=== PATIENT | female | born 1970 | race Caucasian/White ===

== ENCOUNTER → 2016-05-31 | Outpatient (CLI) | payer BC ==
[~2016-05-31] MED LIST: CALC1TAB27 PO; DIPH25CA37 PO; IBUP-1450 PO; MISCCAP80 PO; OMEG10002 PO; RANI300T PO
--- NOTE | 2016-05-31 15:55 | MAMMOGRAPHY REPORT ---
UNILATERAL LEFT DIGITAL DIAGNOSTIC MAMMOGRAM TOMOSYNTHESIS WITH CAD: 05/31/2016 CLINICAL HISTORY: Six-month follow-up of left breast asymmetry. TECHNIQUE: Breast tomosynthesis in addition to standard 2D mammography was performed. Current study was also evaluated with a Computer Aided Detection (CAD) system. Left CC and MLO 2-D and tomosynth esis images were obtained. COMPARISON: Comparison is made to exams dated: 11/30/2015 mammogram, 11/30/2015 ultrasound, 11/16/2015 mammogram, 11/12/2014 mammogram, 11/11/2013 mammogram, and 11/01/2012 mammogram - [facility]. BREAST COMPOSITION: There are scattered areas of fibroglandular density in the left breast. FINDINGS: The previously seen asymmetry with possible distortion on the left cc view is not evident on the current exam, and is therefore benign and most compatible with normal fibroglandular tissue. There are no suspicious masses, calcifications, or areas of architectural distortion noted in the le ft breast. IMPRESSION: ACR BI-RADS CATEGORY 2: BENIGN There is no mammographic evidence of malignancy in the left breast. Return to annual mammogram scree mc schedule is recommended, due November 2016. The patient has been verbally notified of the res ults. Approximately 10% of breast cancers are not detected with mammography. A negative mammographic repor t should not delay biopsy if a clinically suggestive mass is present. Radha Dial M.D. /:05/31/2016 14:42:45 Tax Form Preparer: Zahida JAMES(Esthela)(Obdulia), [facility] letter sent: Normal 1/2 BI-RADS Code: ACR BI-RADS Category 2: Benign
== END | disposition home or self-care (01) ==
LOC: C.MAMM 14:09
PROVIDERS: ATTEND Family Medicine
DX: N64.9 Disorder of breast, unspecified (principal)

== ENCOUNTER → 2016-11-16 | Outpatient (CLI) | payer BC ==
--- NOTE | 2016-11-16 16:21 | MAMMOGRAPHY REPORT ---
BILATERAL DIGITAL SCREENING MAMMOGRAM TOMOSYNTHESIS WITH CAD: 11/16/2016 CLINICAL HISTORY: Routine screening. Patient has no complaints. TECHNIQUE: Breast tomosynthesis in addition to standard 2D mammography was performed. Current study was also evaluated with a Computer Aided Detection (CAD) system. COMPARISON: Comparison is made to exams dated: 05/31/2016 mammogram, 11/30/2015 mammogram, 11/30/2015 u ltrasound, 11/16/2015 mammogram, 11/12/2014 mammogram, and 11/11/2013 mammogram - [facility]. BREAST COMPOSITION: There are scattered areas of fibroglandular density in both breasts. FINDINGS: No suspicious masses, calcifications, or areas of architectural distortion are noted in ei ther breast. There has been no significant interval change compared to prior exams. IMPRESSION: ACR BI-RADS CATEGORY 1: NEGATIVE There is no mammographic evidence of malignancy. A 1 year screening mammogram is recommended. The pa tient will receive written notification of the results. Approximately 10% of breast cancers are not detected with mammography. A negative mammographic report should not delay biopsy if a clinically suggestive mass is present. Radha Dial M.D. /:11/16/2016 15:07:56 Gas Inspector: Alejandra JAMESR, M, [facility] letter sent: Normal 1/2 BI-RADS Code: ACR BI-RADS Category 1: Negative
== END | disposition home or self-care (01) ==
LOC: C.MAMM 14:41
PROVIDERS: ATTEND Family Medicine
DX: Z12.31 Encounter for screening mammogram for malignant neoplasm of breast (principal)

== ENCOUNTER 2025-02-19 09:17 | Observation (INO) ==
--- NOTE | 2025-01-21 11:09 | PAT Medication Instructions ---
Medication Instructions Date of Service January 21, 2025 Home Medications levocetirizine 5 mg tablet (Xyzal) 5 mg PO HS omega-3 fatty acids 1,000 mg PO BID acetaminophen 500 mg tablet (Tylenol Extra Strength) 1,500 mg PO Q6H PRN Elderberry, Vit C, Zinc, Vit D3, Liana 2 cap PO QAM Magnesium Malate 300 mg PO QAM Neuro-Mag L Threonate 144 mg PO HS Vitamin K1/K2 1 tab PO HS calcium 315 mg (as citrate)-vitamin D3 6.25 mcg (250 unit) tablet (Citracal + Vitamin D Maximum) 1 tab PO BID gabapentin 300 mg capsule 300 mg PO HS glucosamin 375 mg-chond 300 mg-collagen 50 mg-hyaluronic acid 2 mg cap 1 cap PO QPM meloxicam 15 mg tablet 15 mg PO QAM turmeric root extract 500 mg tablet 1,000 mg PO QAM ASK your surgeon for instructions meloxicam 15 mg tablet 15 mg PO QAM STOP taking 2 weeks before surgery (or as soon as possible if surgery is within 2 weeks) omega-3 fatty acids 1,000 mg PO BID Elderberry, Vit C, Zinc, Vit D3, Liana 2 cap PO QAM Neuro-Mag L Threonate 144 mg PO HS Vitamin K1/K2 1 tab PO HS glucosamin 375 mg-chond 300 mg-collagen 50 mg-hyaluronic acid 2 mg cap 1 cap PO QPM turmeric root extract 500 mg tablet 1,000 mg PO QAM DO NOT take the morning of surgery Magnesium Malate 300 mg PO QAM calcium 315 mg (as citrate)-vitamin D3 6.25 mcg (250 unit) tablet (Citracal + Vitamin D Maximum) 1 tab PO BID Take morning of surgery With a small sip of water, OTHERWISE NOTHING TO EAT OR DRINK AFTER MIDNIGHT: acetaminophen 500 mg tablet (Tylenol Extra Strength) 1,500 mg PO Q6H PRN(if needed) Take evening before surgery levocetirizine 5 mg tablet (Xyzal) 5 mg PO HS acetaminophen 500 mg tablet (Tylenol Extra Strength) 1,500 mg PO Q6H PRN(if needed) calcium 315 mg (as citrate)-vitamin D3 6.25 mcg (250 unit) tablet (Citracal + Vitamin D Maximum) 1 tab PO BID gabapentin 300 mg capsule 300 mg PO HS Other Notes If you have any questions please call us at [phone] or [phone] or [phone] or [phone]
--- NOTE | 2025-01-22 15:05 | Anesthesiology Consultation ---
Date of Service January 22, 2025 Assessment & Plan (1) Encounter for pre-operative examination: - awaiting surgeon ordered medical clearance 02/05/25 [facility] PCP Dr. Joey Wells. Chart Review Chart Review: Patient seen in Pre Admission Testing Teaching & Discussion Pre-Anesthesia Teaching/Discussion Notes: Instructed NPO after midnight before surgery, except medications with 15 cc of water. Medication instructions provided according to the PAT guidelines. History Surgery Operation Date: 02/19/25 07:00 Proposed Procedures p Right Total Hip Arthroplasty - Pilo Garcia MD Height/Weight Height: 5 ft 7.5 in Weight: 94.3 kg Allergies Allergy/AdvReac Type Severity Reaction Status Date / Time No Known Allergies Allergy Unknown Verified 01/20/25 16:31 Medications Home Medications Medication Instructions Recorded Confirmed Last Taken levocetirizine 5 mg tablet (Xyzal) 5 mg PO HS 09/22/20 01/20/25 09/27/20 21:00 omega-3 fatty acids 1,000 mg PO BID 09/22/20 01/20/25 09/27/20 21:00 acetaminophen 500 mg tablet 1,500 mg PO Q6H PRN Pain 08/17/23 01/20/25 Unknown (Tylenol Extra Strength) Elderberry, Vit C, Zinc, Vit D3, 2 cap PO QAM 01/20/25 01/20/25 Unknown Liana Magnesium Malate 300 mg PO QAM 01/20/25 01/20/25 Unknown Neuro-Mag L Threonate 144 mg PO HS 01/20/25 01/20/25 Unknown Vitamin K1/K2 1 tab PO HS 01/20/25 01/20/25 Unknown calcium 315 mg (as 1 tab PO BID 01/20/25 01/20/25 Unknown citrate)-vitamin D3 6.25 mcg (250 unit) tablet (Citracal + Vitamin D Maximum) gabapentin 300 mg capsule 300 mg PO HS 01/20/25 01/20/25 Unknown glucosamin 375 mg-chond 300 1 cap PO QPM 01/20/25 01/20/25 Unknown mg-collagen 50 mg-hyaluronic acid 2 mg cap meloxicam 15 mg tablet 15 mg PO QAM 01/20/25 01/20/25 Unknown turmeric root extract 500 mg tablet 1,000 mg PO QAM 01/20/25 01/20/25 Unknown Past Medical History Medical History (Updated 01/22/25 @ 15:18 by Gricelda Zepeda PA-C) Gastroparesis GERD (gastroesophageal reflux disease) controlled, stable per pt History of COVID-19 diagnosed 03/31/20--resolved Restless leg syndrome Sleep apnea CPAP-compliant Patient denies h/o stroke, seizures, heart attack, heart failure, DM, HTN, blood clots/DVTs or blood transfusions. Exercise / Class Metabolic Activity II 4-5 Yardwork/Stairs/Walk up hill (denies chest discomfort or shortness of breath walking up one flight of stairs) Past Family History Family History Other No family history of adverse response to anesthesia Past Surgical History Surgical History History of arthroscopy of left knee History of section x2 History of cholecystectomy History of colonoscopy History of esophagogastroduodenoscopy (EGD) History of tooth extraction Past Anesthesia History No Hx of Anesthesia Complications and No Family Hx of Anesthesia Complications History of PONV No Hx of PONV and Hx of Motion Sickness Social History Smoking Status: Never smoker Do You Dip or Chew Tobacco: No Hx Alcohol Use: No Hx Substance Use: No substance use type: does not use Review of Systems Patient denies chest pain, shortness of breath, dyspnea on exertion, fever, chills, cough, wheezing, or palpitations. Physical Exam Vital Signs Vitals BP 113/77 P 59 TEMP 98.2 SP02 97% on RA RESP 17 Physical Patient resting comfortably in chair in no acute distress, alert and oriented, responding appropriately throughout visit Full cervical extension range of motion without pain TMD 3 finger breadths Mallampati Score 3.5 Dentition: crown, denies chipped or loose teeth, caps, implants or bridges Lungs: normal respiratory effort. Good air movement, clear throughout to auscultation, no adventitious breath sounds Cardiac: regular rate and rhythm, no murmurs noted Carotid arteries: negative bruit bilat Lab Results Anesthesia Preop Results Results Anesthesia Widget: WBC 9.49 K/ul (4.8-10.8) 01/22/25 Hgb 12.9 g/dL (12.0-16.0) 01/22/25 Hct 38.2 % (37.0-47.0) 01/22/25 Plt 265 K/uL (130-400) 01/22/25 Na 138 mmol/L (136-145) 01/22/25 K 4.4 mmol/L (3.5-5.1) 01/22/25 Cl 104 mmol/L (98-107) 01/22/25 CO2 29 mmol/L (21-32) 01/22/25 BUN 21 mg/dl (6-23) 01/22/25 Creat 0.93 mg/dl (0.6-1.2) 01/22/25 Glucose Level 100 mg/dl (70-99(Fasting)) H 01/22/25 PT 10.8 Seconds (9.0-12.0) 01/22/25 PTT 26 Seconds (21-31) 01/22/25 INR 1.0 (0.9-1.1) 01/22/25 Urine Color Yellow 01/22/25 Urine Appearance Clear (Clear) 01/22/25 Urine pH 7.0 (4.5-7.5) 01/22/25 Urine Specific [place] 1.005 (1.000-1.030) 01/22/25 Urine Protein Negative (Negative) 01/22/25 Urine Glucose (UA) Negative (Negative) 01/22/25 Urine Ketones Negative (Negative) 01/22/25 Urine Blood Negative (Negative) 01/22/25 Urine Nitrite Negative (Negative) 01/22/25 Urine Bilirubin Negative (Negative) 01/22/25 Urine Urobilinogen Negative (Negative) 01/22/25 Urine Leukocyte Esterase Trace (Negative) H 01/22/25 Urine WBC (Auto) 0-5 /hpf (0-5) 01/22/25 Urine RBC (Auto) 6-10 /hpf (0-2) H 01/22/25 Urine Hyaline Casts (Auto) 0-2 /lpf (0-2) 01/22/25 Urine Epithelial Cells (Auto) 0-2 /hpf (0-2) 01/22/25 Urine Bacteria (Auto) None Seen (None Seen) 01/22/25 Blood Type A Positive 01/22/25 Antibody Screen NEGATIVE 01/22/25 Testing Electrocardiogram Date: 01/22/25 Sinus bradycardia, rate 58 bpm Incomplete RBBB
[~2025-02-19 09:17] MED LIST changes: +BUPIVACAINE 0.5 % 5 MG/1 ML PF 10ML VIAL ONE; -CALC1TAB27 PO; -DIPH25CA37 PO; -IBUP-1450 PO; -MISCCAP80 PO; -OMEG10002 PO; -RANI300T PO
[2025-02-19] MEDS: LR 500ML BOLUS, THEN 15ML/HR IV SCH (09:39)
[2025-02-19] MEDS ORDERED: LIDOCAINE 2% 2 ML VIAL/AMP(20MG/ML) INFIL ONE (09:56)
[2025-02-19] MEDS ORDERED: MIDAZOLAM HCL 1 MG/ML 2ML VIAL ONE (09:56)
[2025-02-19] MEDS: ACETAMINOPHEN 500 MG TAB PO SCH (09:59)
[2025-02-19] MEDS: FAMOTIDINE 20 MG TAB PO SCH (10:00)
[2025-02-19] MEDS: dexAMETHasone**PF** 10 MG/ML VIAL IV SCH (10:00)
[2025-02-19] MEDS: LR 60ML/HR IV SCH (10:00)
[2025-02-19] MEDS: CeleBREX 200 MG CAP PO SCH (10:00)
[2025-02-19] MEDS ORDERED: ATROPINE SULFATE 0.1 MG/ML 10ML SYR IV PRN (10:20)
[2025-02-19] MEDS ORDERED: ONDANSETRON INJ 2 MG/ML 2 ML VIAL IV PRN (10:20)
[2025-02-19] MEDS ORDERED: PROMETHAZINE HCL 6.25 MG in SODIUM CHLORIDE 0.9% 50 ML IV PRN (10:20)
--- NOTE | 2025-02-19 10:23 | History & Physical Bridge Note ---
Date of Service February 19, 2025 History & Physical Bridge Note I have examined the patient, reviewed the History & Physical and in the interval since the performance of the History & Physical I have noted the following changes of clinical significance: no changes noted
[2025-02-19] MEDS: TRANEXAMIC ACID 1,000 MG **IV Pre-op IV SCH (10:34)
[2025-02-19] MEDS ORDERED: METOPROLOL TARTRATE 1 MG/ML VIAL IV ONE (11:10)
[2025-02-19] MEDS ORDERED: PROPOFOL IV EMULSION 10 MG/ML 20 ML VIAL IV ONE (11:10)
[2025-02-19] MEDS: ORTHO JOINT ANESTHETIC ONE (11:57)
[2025-02-19] MEDS: ROPIV 0.5% 246mg, Ketorolac 30mg, EPINEPHrine 0.5mg in NSS INFIL SCH (11:57)
--- NOTE | 2025-02-19 12:23 | Operative Report ---
Post Operative Report Pre & Post Diagnosis Operation Date: 02/19/25 10:40 Pre-Op Diagnosis: Right Hip Osteoarthritis, labrum tear Post-Op Diagnosis: Right Hip Osteoarthritis, labrum tear I identified the patient and participated in the time-out.: Yes Procedure Operation Date: 02/19/25 10:40 Actual Procedures p Right Total Hip Arthroplasty(Right) - Pilo Garcia MD Surgeon Pilo Garcia MD Vacuum Conditioner Operator [employer] PA-C. No resident or fellow was available to assist. Estimated Blood Loss 100 Findings Consistent with Post-Op Diagnosis Specimens Right femoral head Anesthesia Type Spinal MAC Complications none Disposition Disposition: Recovery Room Indications 54-year-old female with right hip pain intractable to nonsurgical management. This includes physical therapy, nonsteroidal anti-inflammatory medications, activity modification, and corticosteroid injections. Physical exam was notable for limited hip range of motion, positive impingement scour test. X-rays were obtained demonstrating mild osteoarthritis. An MRI was obtained which showed evidence of a labrum tear as well as arthritis. Having failed extensive nonsurgical management she was now a candidate for surgery. Given her age, arthritis and body mass index I did not think she was a good candidate for hip arthroscopy. Total hip replacement was her best surgical option. I reviewed the risks and benefits of the surgery with her at length, alternatives to surgery, and expected outcomes. After reviewing all these she elected to proceed with surgery. All questions were answered. Informed consent was signed. Description of Procedure Patient was identified in the preoperative holding area where the surgical site, right hip, was marked. A spinal anesthetic was placed, then the patient was brought back to the main operating room, placed in the operating table and moved into the lateral decubitus position. Axillary roll was placed. All bony prominences were padded. Perioperative antibiotics and tranexamic acid 1 gram IV were administered. The operative extremity was prepped and draped in the normal sterile fashion. Prior to incision a multidisciplinary timeout was called. All in the room were in agreement. We began by making an incision for a posterior approach to the hip. We dissected down through subcutaneous tissues to the level of the fascia. The fascia was incised in line with the incision. Charnley bow was placed. Fatty tissue was reflected posteriorly off the back of the greater trochanter to expose the piriformis and short external rotators of the hip. Quadratus femoris was taken off the femur subperiosteally. The piriformis and short external rotators were dissected off the posterior aspect of the hip. A box cut was made in the capsule. Inferior hip capsule was released off the femur. The femoral head was dislocated. The femoral neck cut was made at our preoperative template. The acetabulum was then exposed. The labrum was sharply excised. Contents of the cotyloid fossa were removed with electrocautery. We then began reaming at a size 8 mm less than our preoperative template. We reamed up by 1 [address] the way up to a size 54 mm cup. This gave us good bleeding cancellus bone circumferentially. The acetabulum was then irrigated out and dried. The real [place] Gription cup was then impacted down into position with 40 degrees of lateral opening and 20 degrees of anteversion. A single cancellous bone screw was placed up into the ilium. Excellent fixation was obtained. A trial liner for a 36 mm femoral head was then placed. Next we turned our attention to the femur. The lateral neck was removed with a box osteotome. Intramedullary guide was used to establish the intramedullary canal. We then broached all the way up to a size 3. We began trialing with a high offset neck and a +5 head. Hip was reduced. Leg lengths were symmetric. The hip was stable in extension and external rotation, and stable in the sleeper position. At 90 degrees of hip flexion the hip could be internally rotated 70 degrees before levering out of the cup. I was very happy with the stability exam. Therefore the hip was dislocated and the femoral trial was removed. The acetabulum was re-exposed, and the trial liner was removed. The real polyethylene liner for a 36 mm femoral head was then impacted into the shell. The locking mechanism was checked to ensure that it had engaged which it had. The femur was re-exposed. The femoral canal was irrigated and dried. The real Actis femoral stem was opened up. This was impacted down into position. The femoral head was opened up and gently impacted down onto the trunnion. The hip was atraumatically reduced. Another 1 gram of IV tranexamic acid was started prior to closure. The wound was irrigated out with sterile Betadine solution. The periarticular injection cocktail was then placed. The short external rotators, piriformis, and posterior capsule were repaired through drill holes in the greater trochanter using #2 Vicryl. The fascia was run with a looped #1 PDS. The subcutaneous layer was closed with #1 PDS. The dermal layer was closed with 2-0 Vicryl. Zip line was used for the skin followed by a Silverlon dressing. A compressive dressing was then placed. The patient was then rolled supine. Leg lengths were rechecked and were symmetric. An abduction pillow was placed. Sedation was lifted and the patient was transferred to the recovery room in stable condition. Summary of implants: Depuy Emphasys Acetabular Shell, 3-hole, 54 mm outer diameter [place] Cancellous bone screw, 6.5 x 40 mm Emphasys AOX Polyethylene Acetabular Liner, Neutral, with a 36 mm inner diameter DePuy Actis collared cementless Femoral stem, 12/14 taper, size 3 high offset 36 mm ceramic femoral head with +5 offset Postoperative course: Patient will be admitted overnight from the recovery room. Patient will be weightbearing as tolerated with posterior hip precautions. Aspirin for DVT prophylaxis I attest to the content of the Intraoperative Record and any orders documented therein. Any exceptions are noted below.
--- NOTE | 2025-02-19 12:25 | Operative Report ---
Post Operative Report Pre & Post Diagnosis Operation Date: 02/19/25 10:40 Pre-Op Diagnosis: Right Hip Osteoarthritis Post-Op Diagnosis: Right Hip Osteoarthritis I identified the patient and participated in the time-out.: Yes Procedure Operation Date: 02/19/25 10:40 Actual Procedures p Right Total Hip Arthroplasty(Right) - Pilo Garcia MD Surgeon Pilo Garcia MD Extension Clerk [employer] PA-C. No resident or fellow was available to assist. Estimated Blood Loss 100 Findings Consistent with Post-Op Diagnosis Specimens femoral head Description of Procedure I was present during the entire case assisting with positioning, prepping, draping, wound retraction, wound closure, dressing and abduction pillow placement. No fellow present. Please see Dr. Garcia operative note for specifics of the case. I attest to the content of the Intraoperative Record and any orders documented therein. Any exceptions are noted below.
[2025-02-19] MEDS ORDERED: ALUMINUM/MAGNESIUM SUSP 30 ML UDC PO PRN (12:28)
[2025-02-19] MEDS ORDERED: NALOXONE HCL 0.4 MG/1 ML VIAL/CARP IV PRN (12:28)
[2025-02-19] MEDS ORDERED: METOCLOPRAMIDE HCL INJ 5 MG/ML 2 ML VIAL IV PRN (12:28)
[2025-02-19] MEDS ORDERED: MAGNESIUM HYDROXIDE SUSP 30 ML UDC PO PRN (12:28)
[2025-02-19] MEDS ORDERED: diphenhydrAMINE 50 MG/ML VIAL IV PRN (12:28)
--- NOTE | 2025-02-19 13:10 | XRay Report ---
XR pelvis 1-2V routine HISTORY: 54 years-old Female In PACU - Post Surgical COMPARISON: Pelvis radiograph 01/26/2025 TECHNIQUE: AP view of the pelvis FINDINGS: Satisfactory alignment of the right hip arthroplasty. Expected postoperative soft tissue swelling wit h deep tissue air. No acute fracture, dislocation or unexpected opaque foreign body. Mild osteoarthri tis of the left hip. IMPRESSION: Satisfactory alignment of the right hip arthroplasty. ACT 112: Negative or not required by law. The above report was generated using voice recognition software. It may contain grammatical, syntax o r spelling errors. Electronically signed by: To Cronin M.D. 02/19/2025 1:09 PM
[2025-02-19] MEDS: HYDROmorphone INJ 1 MG/ML SYRINGE ONE (13:24)
--- NOTE | 2025-02-19 14:17 | Anesthesiology Progress Note ---
Date of Service February 19, 2025 Anesthesia Post Procedure Vital Signs Vital Signs: Temp Pulse Resp BP BP Pulse Ox O2 Del Method 02/19/25 13:45 36.4 C L 56 L 15 115/55 L 96 Room Air 02/19/25 13:35 54 L 15 107/52 L 96 Room Air 02/19/25 13:25 55 L 15 106/51 L 97 Room Air 02/19/25 13:15 36.4 C L 56 L 17 106/54 L 97 Room Air 02/19/25 13:05 52 L 17 102/56 L 97 Room Air 02/19/25 12:55 52 L 17 104/59 L 96 Room Air 02/19/25 12:45 54 L 17 103/57 L 99 Oxymask 02/19/25 12:35 53 L 16 98/48 L 100 Oxymask 02/19/25 12:27 36.2 C L 55 L 18 100/48 L 100 Oxymask 02/19/25 09:40 36.9 C 65 20 133/83 96 Room Air O2 Flow Rate 02/19/25 13:45 02/19/25 13:35 02/19/25 13:25 02/19/25 13:15 02/19/25 13:05 02/19/25 12:55 02/19/25 12:45 5 02/19/25 12:35 5 02/19/25 12:27 5 02/19/25 09:40 Transfer of Care Handoff Completed per policy Notes Mental Status: alert / awake / arousable and participated in evaluation Patient Amnestic to Procedure: Yes Nausea / Vomiting: adequately controlled Pain: adequately controlled Airway Patency, RR, SpO2: stable & adequate BP & HR: stable & adequate Hydration State: stable & adequate Neuraxial Anesthesia: was administered and sensory block is resolving Anesthetic Complications: no major complications apparent and Pt Satisfied with anesthetic care
[2025-02-19] MEDS: HYDROmorphone INJ 0.5 MG/0.5 ML SYR IV STA (14:42)
[2025-02-19] MEDS: KETOROLAC TROMETHAMINE 15 MG/ML VIAL IV SCH (14:45)
[2025-02-19] MEDS: SODIUM CHLORIDE 0.9% 1,000 ML IV SCH (14:45)
[2025-02-19] MEDS: Scopolamine CHECK PATCH PLACEMENT SCH (14:46)
[2025-02-19] MEDS ORDERED: Nursing to Pharmacy Communication SCH (15:15)
[2025-02-19] MEDS: OMEGA-3 (PURIFIED FISH OIL) 1 GM CAP PO SCH (20:27)
[2025-02-19] MEDS: CETIRIZINE HCL 10 MG TABLET PO SCH (20:28)
[2025-02-19] MEDS: SENNA 8.6 MG TAB PO SCH (20:28)
[2025-02-19] MEDS: GABAPENTIN 300 MG CAP PO SCH (20:28)
[2025-02-19] MEDS: DOCUSATE SODIUM 100 MG CAP PO SCH (20:28)
[2025-02-19] MEDS: CALCIUM 600MG + VIT D 400 IU TAB PO SCH (20:28)
[2025-02-19] MEDS: ONDANSETRON INJ 2 MG/ML 2 ML VIAL IV PRN (20:45)
[2025-02-19] MEDS ORDERED: GLUCOSAM CHON COLLAG HYALUR AC PO SCH (21:00)
[2025-02-20] MEDS: ACETAMINOPHEN 500 MG TAB PO PRN (01:31)
[2025-02-20 04:03] VITALS: O2SAT 96
[2025-02-20 05:11] LABS: Hematocrit (blood only) 33.6 % (37.0-47.0); Hemoglobin 11.0 g/dL (12.0-16.0); Immature Granulocytes # (auto) 0.09 K/uL (0.01-0.20); Immature Granulocytes % (auto) 0.5 %; Mean Corpuscular Hemoglobin 28.4 pg (25.0-34.0); Mean Corpuscular Volume 86.8 fL (80.0-100.0); Platelet Count 247 K/uL (130-400); RDW Standard Deviation 39.9 fL (36.4-46.3); Red Blood Count 3.87 M/uL (4.20-5.40); White Blood Count 16.81 K/ul (4.8-10.8)
[2025-02-20 05:26] LABS: Anion Gap 8.0 (3-11); Blood Urea Nitrogen 20.0 mg/dl (6-23); Calcium 8.4 mg/dl (8.6-10.3); Carbon Dioxide 25.0 mmol/L (21-32); Chloride 105.0 mmol/L (98-107); Creatinine Clr Calc Pharmacy 90.4 ml/min; Glucose 113.0 mg/dl (70-99(Fasting)); Potassium 3.8 mmol/L (3.5-5.1); Sodium 138.0 mmol/L (136-145)
[2025-02-20 07:28] VITALS: BP 100/54; PULSE 54; RESP 20; TEMP 98.2
[2025-02-20] MEDS: dexAMETHasone 10 MG in SYRINGE 0 ML IV SCH (08:46)
[2025-02-20] MEDS: GABAPENTIN 100 MG CAP PO SCH (08:47)
[2025-02-20] MEDS: MULTIVITAMIN TAB PO SCH (08:47)
[2025-02-20] MEDS: ASPIRIN 81 MG ECTAB PO SCH (08:47)
[2025-02-20] MEDS ORDERED: MELOXICAM 7.5 MG TAB PO SCH (09:00)
--- NOTE | 2025-02-20 09:16 | Orthopedic Progress Note ---
Date of Service February 20, 2025 Assessment & Plan (1) S/P total hip arthroplasty: Plan: Total hip precautions reviewed Weightbearing as tolerated with walker assistance PT/OT Pain controlled p.o. medication DVT prophylaxis with aspirin and FLORIAN stockings Ice with easy wrap Abduction pillow use x 6 weeks Keep Silverlon dressing in place until follow-up Plan is to discharge home later today with in-home physical therapy Follow-up at [facility] orthopedics as previously scheduled With questions contact our clinic at [phone] Admission and Anticipated Discharge Date Admission Date: February 19, 2025 Subjective This 54-year-old female is day 1 status post right total hip arthroplasty. She states she is doing very well. She states she did get a little lightheaded and her blood pressure dropped while doing stairs this morning with PT. Sitting down she is asymptomatic however I decided to give her a liter bolus of saline s olution. She states she also had some nausea last night and was treated with Zofran. Currently she denies chest pain, shortness of breath, fever, chills, sweats, nausea, vomiting, diarrhea, difficulty voiding or numbness or tingling in her right lower extremity. Review of Systems Review of Systems: All systems reviewed & are unremarkable except as noted in Subjective Physical Exam Physical Exam: Right hip: Outer dressing was removed. Silverlon is clean dry intact left in place. Patient is able to perform active straight leg raise test. She is able to actively dorsi and plantarflex her foot. She has no discomfort with logroll testing. She tolerates passive hip flexion to 85 degrees and experiences only a slight pulling sensation with light passive internal and external rotation. Her peripheral pulses are 2+. Her quad strength is 4 out of 5. She is neurovascularly intact in the right lower extremity. Also of note is a small superficial abrasion over the anterior aspect of her lower leg. Due to this we will give her a prescription for an antibiotic for infection prevention. Results & Data Vital Signs (Past 12 Hours) Vital Signs Temp Pulse Resp BP BP Pulse Ox O2 Del Method 02/20/25 07:26 36.8 C 54 L 20 100/54 L 96 Room Air 02/20/25 04:02 36.6 C 50 L 16 102/60 96 CPAP 02/19/25 22:57 36.5 C 61 16 104/64 94 Room Air Diagnostic Findings Laboratory Results WBC 16.81 K/ul (4.8-10.8) H 02/20/25 04:38 RBC 3.87 M/uL (4.20-5.40) L 02/20/25 04:38 Hgb 11.0 g/dL (12.0-16.0) L 02/20/25 04:38 Hct 33.6 % (37.0-47.0) L 02/20/25 04:38 MCV 86.8 fL (80.0-100.0) 02/20/25 04:38 MCH 28.4 pg (25.0-34.0) 02/20/25 04:38 MCHC 32.7 g/dL (32.0-36.0) 02/20/25 04:38 RDW Std Deviation 39.9 fL (36.4-46.3) 02/20/25 04:38 RDW Coeff of Edgardo 12.6 % (11.5-14.5) 02/20/25 04:38 Plt Count 247 K/uL (130-400) 02/20/25 04:38 MPV 9.4 fL (9.4-12.4) 02/20/25 04:38 Immature Gran % (Auto) 0.5 % 02/20/25 04:38 Neut % (Auto) 83.2 % 02/20/25 04:38 Lymph % (Auto) 7.4 % 02/20/25 04:38 [place] % (Auto) 8.7 % 02/20/25 04:38 Eos % (Auto) 0.0 % 02/20/25 04:38 Baso % (Auto) 0.2 % 02/20/25 04:38 Neut # (Auto) 13.99 K/uL (1.40-6.50) H 02/20/25 04:38 Lymph # (Auto) 1.24 K/uL (1.20-3.40) 02/20/25 04:38 [place] # (Auto) 1.46 K/uL (0.11-0.59) H 02/20/25 04:38 Eos # (Auto) 0.00 K/uL (0.00-0.50) 02/20/25 04:38 Baso # (Auto) 0.03 K/uL (0.00-0.20) 02/20/25 04:38 Immature Gran # (Auto) 0.09 K/uL (0.01-0.20) 02/20/25 04:38 Sodium 138 mmol/L (136-145) 02/20/25 04:38 Potassium 3.8 mmol/L (3.5-5.1) 02/20/25 04:38 Chloride 105 mmol/L (98-107) 02/20/25 04:38 Carbon Dioxide 25 mmol/L (21-32) 02/20/25 04:38 Anion Gap 8 (3-11) 02/20/25 04:38 BUN 20 mg/dl (6-23) 02/20/25 04:38 Creatinine 0.84 mg/dl (0.6-1.2) 02/20/25 04:38 Est Cr Clr Drug Dosing 90.4 ml/min 02/20/25 04:38 eGFR 82.53 02/20/25 04:38 BUN/Creatinine Ratio 23.8 (10-20) H 02/20/25 04:38 Glucose 113 mg/dl (70-99(Fasting)) H 02/20/25 04:38 Calcium 8.4 mg/dl (8.6-10.3) L 02/20/25 04:38 POC Ur Test NEG (NEG) 02/19/25 10:32 Impressions Pelvis X-Ray 02/19/25 12:28 XR pelvis 1-2V routine HISTORY: 54 years-old Female In PACU - Post Surgical COMPARISON: Pelvis radiograph 01/26/2025 TECHNIQUE: AP view of the pelvis FINDINGS: Satisfactory alignment of the right hip arthroplasty. Expected postoperative soft tissue swelling with deep tissue air. No acute fracture, dislocation or unexpected opaque foreign body. Mild osteoarthritis of the left hip. IMPRESSION: Satisfactory alignment of the right hip arthroplasty. ACT 112: Negative or not required by law. The above report was generated using voice recognition software. It may contain grammatical, syntax or spelling errors. Electronically signed by: To Cronin M.D. 02/19/2025 1:09 PM
[2025-02-20] MEDS: SODIUM CHLORIDE 0.9% 1,000 ML IV ONE (09:33)
--- NOTE | 2025-02-20 09:40 | Discharge Summary ---
Date of Service February 20, 2025 Admission HPI Per Admitting Provider History of Present Illness Aury Jackson is a 54-year-old female who presents to the clinic today for a history and physical examination. She is scheduled for right total hip arthroplasty with Dr. Garcia at [facility]. Patient has had right hip pain for the past several years. She has tried multiple rounds of physical therapy without much relief and has also tried meloxicam and Tylenol. 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 She underwent an ultrasound guided intra-articular hip injection on September 19, 2024, and she initially experienced some temporary pain relief, but then the pain returned to its baseline. This pain has affected her ability to accomplish her daily tasks and causes pain at night. She underwent an MRI which was reviewed by Dr. Garcia showing moderate arthritis in the right hip as well as an acetabular labrum tear. Decision was made to proceed with the above procedure at last visit. Patient denies any acute health concerns. She has had no recent fevers, chills, cough, cold symptoms, chest pain, shortness of breath, abdominal pain, nausea, vomiting, urinary urgency, frequency or burning. She has no history of diabetes, MRSA infection, bleeding or clotting disorders, blood clots, or allergy to metal/nickel. No history of tobacco, alcohol, or other substance use. Admission Exam Per Admitting Provider Physical Exam Vitals & Measurements HR: 52 (Monitored) BP: 122/80 SpO2: 98% HT: 169.7 cm WT: 93.0 kg WT: 93.000 kg (Dosing) BMI: 32.29 BMI: 32.29 kg/m2 CONSTITUTIONAL: well developed, well nourished. resting comfortably in no distress. pleasant. EARS: tm's without erythema or bulging. canals without erythema or edema. EYES: PERRL. conjunctiva normal MOUTH: oropharynx clear. dentition in good repair. no evidence of dental infection CARDIOVASCULAR: regular rate and rhythm. no murmurs, rubs, or gallops. Strong right lower extremity DP and PT pulses. RESPIRATORY: no tachypnea. lungs clear to auscultation bilaterally ABDOMEN: normal bowel sounds MUSCULOSKELETAL: Right lower extremity: ROM: Flexion limited 95/ Abduction 30 with hip pain/ External rotation 50/ Internal rotation 5 5/5 hip abductor strength Negative Log roll Positive Scour test Positive Impingement test Equivocal FABIR test Mildly positive Stinchfield test No Tenderness over trochanteric bursa, gluteus medius, piriformis, lumbosacral spine, or SI joint Skin intact NEUROLOGIC: Right lower extremity sensation intact to light touch L3 to S1 dermatomes Principal Diagnosis Right hip osteoarthritis Discharge Exam Right hip: Outer dressing was removed. Silverlon is clean dry intact left in place. Patient is able to perform active straight leg raise test. She is able to actively dorsi and plantarflex her foot. She has no discomfort with logroll testing. She tolerates passive hip flexion to 85 degrees and experiences only a slight pulling sensation with light passive internal and external rotation. Her peripheral pulses are 2+. Her quad strength is 4 out of 5. She is neurovascularly intact in the right lower extremity. Also of note is a small superficial abrasion over the anterior aspect of her lower leg. Due to this we will give her a prescription for an antibiotic for infection prevention. Discharge Data Allergies Allergy/AdvReac Type Severity Reaction Status Date / Time No Known Allergies Allergy Unknown Verified 02/19/25 09:23 Procedures Performed Operation Date: 02/19/25 10:40 Actual Procedures p Right Total Hip Arthroplasty(Right) - Pilo Garcia MD Hospital Course (1) S/P total hip arthroplasty: Patient had an uneventful overnight stay following right total hip arthroplasty. However, she did get lightheaded and her blood pressure dropped a little while doing steps with PT this morning. I did order a liter bolus for her to be given before discharge. She is very pleased with the results of the surgery. She is scheduled to begin home physical therapy over the weekend. Total hip precautions reviewed Weightbearing as tolerated with walker assistance PT/OT Pain controlled p.o. medication DVT prophylaxis with aspirin and FLORIAN stockings Ice with easy wrap Abduction pillow use x 6 weeks Keep Silverlon dressing in place until follow-up Plan is to discharge home later today with in-home physical therapy Follow-up at [facility] orthopedics as previously scheduled With questions contact our clinic at [phone] Total Time Total Time Spent Total Time Spent (In Minutes): 25 mins Discharge Plan Discharge Items Patient Disposition: Home - Home Health Services Reason For Visit: Right Hip Osteoarthritis Discharge Diagnosis: s/p Right total hip arthroplasty Activity: As commented below Lifting: None Bathing: Keep incision dry Bathing Comment: May shower later today Sexual Activity: Wait until after follow-up appointment Exercise/Sports: Wait until after follow-up appointment Driving/Machine Use: No driving until cleared by consumer affairs specialist Weightbearing: Right weightbearing Weightbearing Comment: As tolerated with walker assistance Non-emergency contact: Surgeon Call non-emergency contact if: you have any medication questions, your pain is not controlled, your temperature is above 101.5, your wound has increased drainage and your wound pain has increased Follow-up/Referrals: Joey Wells, [Primary Care Provider] - Diet: Regular Addtl Attending Provider Instructions: Post-operative Instructions Dear Patient and Family/Friends, Before you are discharged from the hospital, it is important to know what to expect when you get home after surgery. To that end, we have created this sheet of discharge instructions which covers many commonly asked questions. Make sure you go through this sheet in its entirety with your nurse before you are discharged. Please note that we will go over the specifics of your surgery and recovery when you return for your first post-operative visit. Sincerely, Dr. Gracia Medications 1. Oxycodone 5 mg: Take 1 to 2 tablets every 4-6 hours as needed for postop erative pain control. A prescription for this medication will be sent to your pharmacy. 2. Meloxicam 15 mg: Resume your normal daily dosage for postoperative pain and inflammation relief. If you need a refill contact the clinic and I will send one in. 3. Zofran 4 mg ODT: Place 1 tablet under your tongue every 8 hours as needed for postoperative nausea/vomiting. A prescription for this will be sent to pharmacy. 4. Cephalexin 500 mg: Take 1 tablet 3 times daily for 5 days postoperatively for infection prevention. This will be sent to your pharmacy as well. 5. Extra strength Tylenol 500 mg: Please decrease your normal daily dosage to 1000 mg no more than 3 times daily. 6. Aspirin 81 mg: take 1 tab twice daily for 30 days post operatively for blood clot prevention. Please purchase. Pain Expect to be in a fair amount of pain after surgery. Remember, our goal is not to eliminate your pain, but to make it tolerable. It is a good idea to stay ahead of your pain by taking the medications you were prescribed once you get home. Typically, the pain starts improving 3-7 days after surgery. You should start weaning off the narcotic pain medication (oxycodone, hydrocodone, hydromorphone, morphine) as soon as your pain improves. Please call our office if your pain is not adequately controlled. Ice Ice your operative site at least 5 times a day for 15-30 minutes at a time. Make sure you have a thin cloth between the ice or cooling unit and your skin to prevent parada bite. This is especially important if you received a nerve block. Continue icing your operative site for the first 5-7 days after surgery, then as needed. Diet/Nausea/Vomiting Start by drinking clear liquids and eating crackers. If you can tolerate this, then you may resume your normal diet. If you feel nauseated or vomit, take Zofran/ondansetron (if prescribed). Please call our office if you have intractable nausea or vomiting, or, if after hours, you may go to the Emergency Room for help. Constipation Constipation is a common side effect of narcotic pain medication. If you have not had a bowel movement within 2 days after surgery, we recommend purchasing an over the counter laxative such as Milk of Magnesia, Dulcolax, or Miralax from a local pharmacy, and taking it as instructed. Call our clinic if any questions. Nerve block The anesthesia team sometimes places a nerve block to help with post-operative pain control. This results in significant numbness and inability to move the extremity. The nerve block usually wears off in 8-12 hours, but sometimes can last up to 24 hours. Please call our office if you are still unable to move your extremity after 24 hours, unless you received a pain pump to take home. Nerve blocks typically wear off quickly, so start taking pain medication as soon as you start feeling soreness near your surgical site. Weight bearing and Range of Motion. Do not bear any weight through your operative extremity immediately after surgery. If you had upper extremity surgery, do not lift anything with that arm. If you are in a knee brace, keep it locked in place until your follow-up. We will discuss your weight bearing, range of motion, and lifting restrictions in detail at your first post-operative appointment. Continuous Passive Motion (CPM) Machine If you were prescribed a CPM machine, it will start after your first post- operative appointment, at which time we will give you instructions on the range of motion settings and duration of treatment Physical therapy You will be given a prescription for physical therapy or occupational therapy at your first post-operative appointment. Typically, patients start therapy within 1 week of surgery Wound care and showering We will inspect your wound at your first post-operative visit, and may do a dressing change at that time. Most patients will be in a water-proof dressing that is removed 14 days after surgery. It is normal to see some dried blood on the dressing. Do not remove your dressing, paper strips or sutures yourself unless you are given permission. Showering is allowed the day after surgery. Do not scrub or remove any dressings. The wound should not be submerged underwater (i.e. in a bathtub or pool) until 4 weeks after surgery FLORIAN stockings If you were given white stockings, these are to be worn at all times except to shower (on both legs) for the first 2 weeks after surgery. Driving You may not drive while taking narcotic pain medication or while in a cast, splint, sling or brace. You, the patient, need to make the final determination about when you are safe to drive, however, the earliest you may consider driving after surgery is below: Hand/Wrist/Elbow Surgery: 3 days Shoulder Surgery: 2 weeks Hip,/Knee/Ankle Surgery: 4 weeks Fracture repair: 6 weeks Return to Work Your return to work depends on what surgery was done and what type of work you do. Please bring any paperwork your employer needs completed to your first post-operative visit. Also, bring a description of your job duties, as this helps us to understand what risks you may face at work. Travel Avoid long distance travel (greater than 1 hour) in airplanes and cars for the first 6 weeks after surgery. If you must travel, you need to have a Doppler ultrasound done before you travel to rule out a blood clot in your legs. Follow-up You should have a follow-up appointment already scheduled 1-2 days after surgery. If not, please contact our office to make this appointment before you leave the hospital. When to call the office It is normal to have swelling and bruising in the limb that was operated on. This will improve with time. It is also normal to have fevers for the first 2 days after surgery. Reasons you should call your doctor include: Uncontrolled pain; Nausea, vomiting, or constipation that does not improve with medication; Fevers over 101.5, chills, sweats; Drainage or bleeding from the wound; Foul odor; Spreading areas of redness; Any other concerns. Contact Information Please call Dr. Garcia's office at [phone] with any concerns. Pending Studies at Discharge: No Stand-Alone Forms: [facility] Medications and DC Order Prescriptions: New aspirin 81 mg Tablet,Delayed Release (Dr/Ec) 81 mg PO BID 30 Days Qty: 60 0RF oxycodone 5 mg Tablet 5 - 10 mg PO Q4H MDD Max 6/day PRN (Reason: Post op pain control) Qty: 28 0RF ondansetron 4 mg tablet,disintegrating 4 mg PO Q8H 5 Days Qty: 15 0RF cephalexin 500 mg capsule 500 mg PO TID 5 Days Qty: 15 0RF Continued omega-3 fatty acids Capsule 1,000 mg PO BID levocetirizine [Xyzal] 5 mg Tablet 5 mg PO HS gabapentin 300 mg Capsule 100 mg PO QAM calcium citrate-vitamin D3 [Citracal + D Maximum] 315 mg-6.25 mcg (250 unit) Tablet 1 tab PO BID Magnesium Malate 300 mg PO QAM Neuro-Mag L Threonate 144 mg PO HS meloxicam 15 mg Tablet 15 mg PO QAM dxncwozh-hvva-welbxk-hyalur ac [id number] mg Capsule 1 cap PO QPM turmeric root extract 500 mg Tablet 1,000 mg PO QAM Elderberry, Vit C, Zinc, Vit D3, Liana 2 cap PO QAM Vitamin K1/K2 1 tab PO HS gabapentin 300 mg Capsule 300 mg PO HS Changed acetaminophen [Tylenol Extra Strength] 500 mg tablet 1,000 mg PO Q6H PRN (Reason: Pain) Qty: 0 0RF Discharge Orders: Discharge Order (Routine); Ordered 02/20/25 Ordered By: Costa Power Admission Data Admit Date/Time: 02/19/25 12:28 Attending Provider: Pilo Garcia Admit Provider: Pilo Garcia Primary Care Provider: Joey Wells Other Providers: [facility],Home Healthcare
[2025-02-22] MEDS ORDERED: Scopolamine REMOVE TRANSDERM PATCH ONE (08:00)
== END 2025-02-20 11:56 | disposition home health service (06) | DRG 470 ==
LOC: ASU 09:17 → 3E 12:28 → INTOOBSV 12:28

== ENCOUNTER 2025-02-23 13:38 | Inpatient (IN) ==
--- NOTE | 2025-02-23 13:57 | Emergency Department Note ---
ED Provider Note CHIEF COMPLAINT: Hip pain HISTORY OF PRESENTING ILLNESS: The patient is a pleasant 54-year-old female who arrives to the emergency department for evaluation of right hip pain. Patient had a right hip replacement on . She was discharged from this facility on Sunday. She reports she was prescribed oxycodone, for pain control at home as well as as needed Zofran. She reports the nausea medication is not helping, and she is unable to take the oxycodone due to the nausea. She states she contacted her orthopedic provider, who referred her to the emergency department for pain control. REVIEW OF SYSTEMS: See HPI for pertinent positives and pertinent negatives. ALLERGIES: See below MEDICATIONS: See below PAST MEDICAL HISTORY: See below PHYSICAL EXAM: [] DIFFERENTIAL DIAGNOSIS: [] ED COURSE AND MEDICAL DECISION MAKING: HISTORY FROM INDEPENDENT HISTORIAN: [] MEDICATIONS GIVEN: [] MONITOR: Continuous radiation monitor: Order was placed for continuous radiation monitor. Patient was placed on the radiation monitor and continuous pulse ox. Patient was noted to be in normal sinus rhythm at an initial rate of [] bpm per my interpretation. EKG: EKG was interpreted by myself as []. INTERPRETATION OF LABS: I interpreted the labs with full lab results as below in the lab section of this note. Pertinent lab results discussed in the MDM section below. INTERPRETATION OF IMAGING: Imaging studies were interpreted by myself and read by radiology as per the imaging section of this note. EXTERNAL RECORDS REVIEWED: [] CHRONIC MEDICAL/SOCIAL CONDITIONS AFFECTING CARE: [] ESCALATION OF CARE CONSIDERED: [] CONSULTATIONS: [] PROCEDURES: [] MDM SUMMARY: The patient is a pleasant, [] who arrives to the emergency department for evaluation of the above-stated complaint. []. DIAGNOSIS: [] The chart was completed utilizing [employer] Speech voice recognition software. Grammatical errors, random word insertions, pronoun errors, and incomplete sentences are an occasional consequence of this system due to software limitations, ambient noise, and hardware issues. Any formal questions or concerns about the content, text, or information contained within the body of this dictation should be directly addressed to the provider for clarification. TREATMENT PLAN/DISCHARGE INSTRUCTIONS: [] Past Med/Surg History Problem List Nausea Constipation S/P total hip arthroplasty Greater trochanteric pain syndrome Right hip pain Sacroiliitis Medical History GERD (gastroesophageal reflux disease) controlled, stable per pt Gastroparesis Restless leg syndrome History of COVID-19 diagnosed 03/31/20--resolved Sleep apnea CPAP-compliant Surgical History History of colonoscopy History of arthroscopy of left knee History of section x2 History of cholecystectomy History of esophagogastroduodenoscopy (EGD) History of tooth extraction Family History Other No family history of adverse response to anesthesia Social History Smoking Status: Never smoker Second Hand Exposure: No; Do You Dip or Chew Tobacco: No; Hx Alcohol Use: No Hx Substance Use: No Preferred Language: Sammarinese Communication Ability: Effective Case Preparer And Liner Required: No Beliefs That Will Affect Care: None Current Living Situation: Spouse and Family Feels Safe at Home: Yes Assistive Devices: CPAP and Walker Allergies Allergies Allergy/AdvReac Type Severity Reaction Status Date / Time No Known Allergies Allergy Unknown Verified 02/19/25 09:23 Home Meds Home Medications Medication Instructions Recorded Confirmed levocetirizine 5 mg tablet (Xyzal) 5 mg PO HS 09/22/20 02/23/25 omega-3 fatty acids 1,000 mg PO BID 09/22/20 02/23/25 Elderberry, Vit C, Zinc, Vit D3, 2 cap PO QAM 01/20/25 02/23/25 Liana Magnesium Malate 300 mg PO QAM 01/20/25 02/23/25 Neuro-Mag L Threonate 144 mg PO HS 01/20/25 02/23/25 Vitamin K1/K2 1 tab PO HS 01/20/25 02/23/25 calcium 315 mg (as 1 tab PO BID 01/20/25 02/23/25 citrate)-vitamin D3 6.25 mcg (250 unit) tablet (Citracal + Vitamin D Maximum) gabapentin 300 mg capsule 100 mg PO QAM 01/20/25 02/23/25 glucosamin 375 mg-chond 300 1 cap PO QPM 01/20/25 02/23/25 mg-collagen 50 mg-hyaluronic acid 2 mg cap meloxicam 15 mg tablet 15 mg PO QAM 01/20/25 02/23/25 turmeric root extract 500 mg tablet 1,000 mg PO QAM 01/20/25 02/23/25 gabapentin 300 mg capsule 300 mg PO HS 02/19/25 02/23/25 Previous Rx's Medication Instructions Recorded acetaminophen 500 mg tablet 1,000 mg (2 x 500 mg) PO Q6H PRN 02/20/25 (Tylenol Extra Strength) Pain #0 tabs aspirin 81 mg tablet,delayed 81 mg PO BID DVT prophylaxis 30 02/20/25 release days #60 tabs oxycodone 5 mg tablet 5 - 10 mg (1 - 2 x 5 mg) PO Q4H 02/20/25 PRN Post op pain control #28 tabs Results & Data (ED) Vital Signs Vital Signs - 24 hr 02/23/25 13:48 Temperature 36.8 C Temperature Source Temporal Artery Scan Pulse Rate 76 Respiratory Rate 19 Respiratory Effort / Characteristics Non-Labored Spontaneous Respiratory Depth Normal Respiratory Pattern Regular Blood Pressure 142/79 H Blood Pressure Mean 100 Pulse Oximetry 97 Oxygen Delivery Method Room Air Sepsis Recent Fever Within 48 Hours No Sepsis New/Unexplained Change in Mental Status N/A Sepsis Action Taken by Nursing No Action Required Home Medications Current Medication List: was personally reviewed by me Laboratory Data Attestation: I reviewed the patient's lab results. 02/24/25 09:30 02/26/25 05:30 Lab Results 02/23/25 Range/Units 14:24 WBC 12.94 H (4.8-10.8) K/ul RBC 4.25 (4.20-5.40) M/uL Hgb 12.2 (12.0-16.0) g/dL Hct 36.5 L (37.0-47.0) % MCV 85.9 (80.0-100.0) fL MCH 28.7 (25.0-34.0) pg MCHC 33.4 (32.0-36.0) g/dL RDW Std Deviation 39.3 (36.4-46.3) fL RDW Coeff of Edgardo 12.5 (11.5-14.5) % Plt Count 308 (130-400) K/uL MPV 9.2 L (9.4-12.4) fL Immature Gran % (Auto) 0.9 % Neut % (Auto) 84.6 % Lymph % (Auto) 9.1 % Coffee % (Auto) 4.6 % Eos % (Auto) 0.2 % Baso % (Auto) 0.6 % Neut # (Auto) 10.94 H (1.40-6.50) K/uL Lymph # (Auto) 1.18 L (1.20-3.40) K/uL Coffee # (Auto) 0.60 H (0.11-0.59) K/uL Eos # (Auto) 0.02 (0.00-0.50) K/uL Baso # (Auto) 0.08 (0.00-0.20) K/uL Immature Gran # (Auto) 0.12 (0.01-0.20) K/uL Sodium 138 (136-145) mmol/L Potassium 4.2 (3.5-5.1) mmol/L Chloride 106 (98-107) mmol/L Carbon Dioxide 26 (21-32) mmol/L Anion Gap 6 (3-11) BUN 15 (6-23) mg/dl Creatinine 0.56 L (0.6-1.2) mg/dl Est Cr Clr Drug Dosing Not Reportable eGFR 108.39 BUN/Creatinine Ratio 26.8 H (10-20) Glucose 123 H (70-99(Fasting)) mg/dl Calcium 9.5 (8.6-10.3) mg/dl Total Bilirubin 0.6 (0.2-1.0) mg/dl AST 147 H (13-39) U/L ALT 234 H (7-52) U/L Alkaline Phosphatase 147 H (34-104) U/L Total Protein 7.5 (6.0-8.3) gm/dl Albumin 3.8 (3.4-5.0) gm/dl Globulin 3.7 (2.5-4.0) gm/dl Albumin/Globulin Ratio 1.0 (0.9-2) Administered Medications Discontinued Medications Acetaminophen (Acetaminophen 500 Mg Tab) 500 mg PO QID [facility] Stop: 03/25/25 18:16 Last Admin: 02/26/25 12:27 Dose: 500 mg Documented By: Admin: 02/26/25 08:26 Dose: 500 mg Documented By: Admin: 02/25/25 20:49 Dose: 500 mg Documented By: psc Admin: 02/25/25 17:03 Dose: 500 mg Documented By: Admin: 02/25/25 13:10 Dose: 500 mg Documented By: Admin: 02/25/25 08:56 Dose: 500 mg Documented By: Admin: 02/24/25 20:52 Dose: 500 mg Documented By: Admin: 02/24/25 17:57 Dose: 500 mg Documented By: Admin: 02/24/25 14:12 Dose: 500 mg Documented By: Admin: 02/24/25 08:11 Dose: 500 mg Documented By: Admin: 02/23/25 20:56 Dose: 500 mg Documented By: Admin: 02/23/25 18:55 Dose: 500 mg Documented By: SARA Aspirin (Aspirin 81 Mg Ectab) 81 mg PO BID [facility] Stop: 03/25/25 20:59 Last Admin: 02/26/25 08:16 Dose: 81 mg Documented By: Admin: 02/25/25 20:48 Dose: 81 mg Documented By: jeanie Admin: 02/25/25 08:56 Dose: 81 mg Documented By: Admin: 02/24/25 20:53 Dose: 81 mg Documented By: Admin: 02/24/25 08:12 Dose: 81 mg Documented By: Admin: 02/23/25 20:57 Dose: 81 mg Documented By: ANGELIKA Bisacodyl (Bisacodyl 10 Mg Supp) 10 mg NH NOW STA Stop: 02/23/25 19:12 Last Admin: 02/23/25 20:55 Dose: Not Given Documented By: ANGELIKA Bisacodyl (Bisacodyl 10 Mg Supp) 10 mg NH NOW STA Stop: 02/24/25 09:12 Last Admin: 02/24/25 10:01 Dose: 10 mg Documented By: DAIANA Cephalexin HCl (Cephalexin 500 Mg Cap) 500 mg PO TID [facility]; Protocol Stop: 03/02/25 20:59 Last Admin: 02/24/25 15:47 Dose: Not Given Documented By: Admin: 02/24/25 08:11 Dose: 500 mg Documented By: Admin: 02/23/25 20:58 Dose: 500 mg Documented By: ANGELIKA Cephalexin HCl (Cephalexin 500 Mg Cap) 500 mg PO QID [facility]; Protocol Stop: 03/02/25 20:59 Last Admin: 02/26/25 12:25 Dose: 500 mg Documented By: Admin: 02/26/25 08:16 Dose: 500 mg Documented By: Admin: 02/25/25 20:48 Dose: 500 mg Documented By: psc Admin: 02/25/25 17:03 Dose: 500 mg Documented By: Admin: 02/25/25 13:10 Dose: 500 mg Documented By: Admin: 02/25/25 08:56 Dose: 500 mg Documented By: Admin: 02/24/25 20:53 Dose: 500 mg Documented By: Admin: 02/24/25 17:57 Dose: 500 mg Documented By: ADB Cetirizine HCl (Cetirizine Hcl 10 Mg Tablet) 10 mg PO HS [facility] Stop: 03/25/25 20:59 Last Admin: 02/25/25 20:48 Dose: 10 mg Documented By: psc Admin: 02/24/25 20:54 Dose: 10 mg Documented By: Admin: 02/23/25 20:58 Dose: 10 mg Documented By: HFW Gabapentin (Gabapentin 300 Mg Cap) 300 mg PO HS [facility] Stop: 03/25/25 20:59 Last Admin: 02/25/25 20:48 Dose: 300 mg Documented By: psc Admin: 02/24/25 20:53 Dose: 300 mg Documented By: Admin: 02/23/25 20:57 Dose: 300 mg Documented By: HFW Hydromorphone HCl (Hydromorphone Inj 0.5 Mg/0.5 Ml Syr) 0.25 mg IV NOW STA Stop: 02/23/25 16:17 Last Admin: 02/23/25 16:55 Dose: 0.25 mg Documented By: ALBERTINA Sodium Chloride (Nss) 1,000 mls @ 999 mls/hr IV .Q1H1M ONE Stop: 02/23/25 15:05 Last Infusion: 02/23/25 18:50 Dose: Infused Documented By: Admin: 02/23/25 14:31 Dose: 999 mls/hr Documented By: cad Sodium Chloride (Nss) 1,000 mls @ 125 mls/hr IV .Q8H [facility] Stop: 02/25/25 09:18 Last Admin: 02/25/25 09:09 Dose: 80 mls/hr Documented By: Infusion: 02/25/25 09:09 Dose: Infused Documented By: Admin: 02/24/25 20:49 Dose: 80 mls/hr Documented By: Infusion: 02/24/25 20:43 Dose: Infused Documented By: Infusion: 02/24/25 14:16 Dose: 80 mls/hr Documented By: Infusion: 02/24/25 11:49 Dose: 0 mls/hr Documented By: Admin: 02/24/25 05:45 Dose: 80 mls/hr Documented By: Infusion: 02/24/25 05:24 Dose: Infused Documented By: Admin: 02/23/25 16:54 Dose: 80 mls/hr Documented By: ALBERTINA Promethazine HCl (Phenergan) 12.5 mg in 50.5 mls @ 202 mls/hr IV Q6H PRN PRN Reason: Nausea And Vomiting Stop: 03/25/25 18:16 Last Infusion: 02/23/25 22:40 Dose: Infused Documented By: Admin: 02/23/25 21:44 Dose: 202 mls/hr Documented By: GAVIN Sodium Chloride (Nss) 1,000 mls @ 125 mls/hr IV .Q8H [facility] Stop: 02/26/25 09:44 Last Infusion: 02/26/25 10:11 Dose: Infused Documented By: Admin: 02/26/25 01:39 Dose: 125 mls/hr Documented By: psc Infusion: 02/26/25 01:39 Dose: Infused Documented By: psc Admin: 02/25/25 17:53 Dose: 125 mls/hr Documented By: Infusion: 02/25/25 17:53 Dose: Infused Documented By: Admin: 02/25/25 13:13 Dose: 125 mls/hr Documented By: MAKSIM Ketorolac Tromethamine (Ketorolac 30 Mg/Ml Vial) 30 mg IV Q6H PRN PRN Reason: Pain Stop: 03/01/25 18:10 Last Admin: 02/26/25 07:12 Dose: 30 mg Documented By: Admin: 02/25/25 17:50 Dose: 30 mg Documented By: Admin: 02/25/25 08:49 Dose: 30 mg Documented By: Admin: 02/24/25 19:39 Dose: 30 mg Documented By: BOBBY Magnesium Hydroxide (Magnesium Hydroxide Susp 30 Ml Udc) 30 ml PO NOW ONE Stop: 02/24/25 18:13 Last Admin: 02/24/25 18:51 Dose: 30 ml Documented By: DAIANA Meloxicam (Meloxicam 7.5 Mg Tab) 15 mg PO QAM [facility] Stop: 03/26/25 08:59 Last Admin: 02/24/25 08:11 Dose: 15 mg Documented By: DAIANA Methylnaltrexone Eureka (Methylnaltrexone Eureka 12 Mg/0.6 Ml Vial) 12 mg SQ ONE ONE Stop: 02/24/25 13:50 Last Admin: 02/24/25 14:13 Dose: 12 mg Documented By: DAIANA Metoclopramide HCl (Metoclopramide Hcl Inj 5 Mg/Ml 2 Ml Vial) 5 mg IV ONE ONE Stop: 02/23/25 16:55 Last Admin: 02/23/25 18:51 Dose: Not Given Documented By: SARA Morphine Sulfate (Morphine Sulfate 4 Mg/Ml 1 Ml Carp\Vial) 4 mg IV NOW STA Stop: 02/23/25 14:06 Last Admin: 02/23/25 14:31 Dose: 4 mg Documented By: betty Morphine Sulfate (Morphine Sulfate 4 Mg/Ml 1 Ml Carp\Vial) 4 mg IV NOW STA Stop: 02/23/25 15:22 Last Admin: 02/23/25 15:29 Dose: 4 mg Documented By: DOT Ondansetron HCl (Ondansetron Inj 2 Mg/Ml 2 Ml Vial) 4 mg IV NOW STA Stop: 02/23/25 14:06 Last Admin: 02/23/25 14:31 Dose: 4 mg Documented By: betty Ondansetron HCl (Ondansetron Inj 2 Mg/Ml 2 Ml Vial) 4 mg IV NOW STA Stop: 02/23/25 16:17 Last Admin: 02/23/25 16:54 Dose: 4 mg Documented By: ALBERTINA Ondansetron HCl (Ondansetron Inj 2 Mg/Ml 2 Ml Vial) 4 mg IV Q6H PRN PRN Reason: Nausea And Vomiting Stop: 03/26/25 11:40 Last Admin: 02/25/25 05:09 Dose: 4 mg Documented By: Admin: 02/24/25 11:46 Dose: 4 mg Documented By: DAIANA Pantoprazole Sodium (Pantoprazole 40 Mg Tab) 40 mg PO QAM [facility] Stop: 03/26/25 18:14 Last Admin: 02/26/25 08:16 Dose: 40 mg Documented By: Admin: 02/25/25 08:56 Dose: 40 mg Documented By: Admin: 02/24/25 19:30 Dose: 40 mg Documented By: BOBBY Polyethylene Glycol (Polyethylene (Miralax) 17 Gm Pack) 17 gm PO BID [facility] Stop: 03/25/25 20:59 Last Admin: 02/25/25 08:49 Dose: 17 gm Documented By: Admin: 02/24/25 20:51 Dose: 17 gm Documented By: Admin: 02/24/25 08:11 Dose: 17 gm Documented By: Admin: 02/23/25 20:55 Dose: 17 gm Documented By: ANGELIKA Senna/Docusate Sodium (Docusate Sodium/Senna 50/8.6mg Tab) 2 tab PO HS [facility] Stop: 03/25/25 20:59 Last Admin: 02/25/25 20:49 Dose: 2 tab Documented By: jeanie Admin: 02/24/25 20:52 Dose: 2 tab Documented By: Admin: 02/23/25 20:56 Dose: 2 tab Documented By: ANGELIKA Simethicone (Simethicone 80 Mg Chew) 80 mg PO TID [facility] Stop: 03/25/25 20:59 Last Admin: 02/26/25 08:26 Dose: 80 mg Documented By: Admin: 02/25/25 20:48 Dose: 80 mg Documented By: jeanie Admin: 02/25/25 13:10 Dose: 80 mg Documented By: Admin: 02/25/25 09:08 Dose: 80 mg Documented By: Admin: 02/24/25 20:52 Dose: 80 mg Documented By: Admin: 02/24/25 14:12 Dose: 80 mg Documented By: Admin: 02/24/25 08:19 Dose: 80 mg Documented By: Admin: 02/23/25 20:57 Dose: 80 mg Documented By: ANGELIKA Sodium Biphosphate/Sodium Phosphate (Sod Phosphate/Sod Biphosphate Enema 132 Ml Btl) 132 ml NH NOW STA Stop: 02/24/25 11:20 Last Admin: 02/24/25 11:29 Dose: 132 ml Documented By: DAIANA Tramadol HCl (Tramadol Hcl 50 Mg Tablet) 50 mg PO Q4H PRN PRN Reason: Moderate Pain (Scale 4, 5, 6) Stop: 03/25/25 17:03 Last Admin: 02/25/25 20:48 Dose: 50 mg Documented By: psc Admin: 02/25/25 00:04 Dose: 50 mg Documented By: Admin: 02/24/25 15:22 Dose: 50 mg Documented By: Admin: 02/24/25 04:45 Dose: 50 mg Documented By: Admin: 02/23/25 18:55 Dose: 50 mg Documented By: SARA Imaging Data Attestation: I personally reviewed and interpreted this imaging study as follows: Discharge Plan Visit Data Chief Complaint: Hip Pain Stated Complaint: PAIN FOLLOWING KIKI/R HIP/PAIN MEDICINE MAKING SICK ED Provider: Antoine Wiggins ED Midlevel Provider: Alize Hayes Patient Disposition: Admitted As Inpatient Condition: Good Discharge Instructions Interventions: ED Discharge Assessment Last Done: 02/23/25 17:51
[2025-02-23] MEDS: SODIUM CHLORIDE 0.9% 1,000 ML IV ONE (14:31)
[2025-02-23] MEDS: MoRPHine SULFATE 4 MG/ML 1 ML CARP\\VIAL IV STA ×2 (14:31→15:29)
[2025-02-23] MEDS: ONDANSETRON INJ 2 MG/ML 2 ML VIAL IV STA ×2 (14:31→16:54)
[2025-02-23 14:40] LABS: Hematocrit (blood only) 36.5 % (37.0-47.0); Hemoglobin 12.2 g/dL (12.0-16.0); Immature Granulocytes # (auto) 0.12 K/uL (0.01-0.20); Immature Granulocytes % (auto) 0.9 %; Mean Corpuscular Hemoglobin 28.7 pg (25.0-34.0); Mean Corpuscular Volume 85.9 fL (80.0-100.0); Platelet Count 308 K/uL (130-400); RDW Standard Deviation 39.3 fL (36.4-46.3); Red Blood Count 4.25 M/uL (4.20-5.40); White Blood Count 12.94 K/ul (4.8-10.8)
[2025-02-23 14:57] LABS: Alanine Aminotransferase 234 U/L (7-52); Albumin Globulin Ratio 1.0 (0.9-2); Albumin Level 3.8 gm/dl (3.4-5.0); Alkaline Phosphatase 147 U/L (34-104); Anion Gap 6 (3-11); Bilirubin,Total 0.6 mg/dl (0.2-1.0); Blood Urea Nitrogen 15 mg/dl (6-23); Calcium 9.5 mg/dl (8.6-10.3); Carbon Dioxide 26 mmol/L (21-32); Chloride 106 mmol/L (98-107); Globulin 3.7 gm/dl (2.5-4.0); Glucose 123 mg/dl (70-99(Fasting)); Potassium 4.2 mmol/L (3.5-5.1); Sodium 138 mmol/L (136-145); Total Protein 7.5 gm/dl (6.0-8.3)
[2025-02-23] MEDS: SODIUM CHLORIDE 0.9% 1,000 ML IV SCH (16:54)
[2025-02-23] MEDS: HYDROmorphone INJ 0.5 MG/0.5 ML SYR IV STA (16:55)
--- NOTE | 2025-02-23 17:00 | History & Physical Report ---
Date of Service February 23, 2025 Assessment & Plan (1) S/P total hip arthroplasty: (2) Right hip pain: (3) Constipation: (4) Nausea: Plan This is a 54-year-old female who has a significant past medical history of GERD, IKE, RLS and insomnia who presents to ED secondary to worsening hip pain and nausea since recent right hip arthroplasty. #S/P R DELORIS on 02/19 #Post op pain admit to medical consult orthopedics Obtain right hip xr will defer wound management to ortho continue perioperative keflex per ortho ASA BID per ortho, if unable to tolerate PO will consider SQ Lovenox Pt is not tolerated zofran so will switch antiemetic to IV phenergan prn IV morphine for severe pain, prn tramadol for moderate pain schedule tylenol #Post op nausea #Constipation r/o ileus, obtain KUB encourage ambulation IVF, Clear liquid diet, ADAT Miralax BID, Senna S 2 tab at HS, Simethicone TID #Leukocytosis improved from surgery, 16k>12k no apparent source of infection or SIRS, but will monitor closely #Elevated LFTS pt reports 6-9 extra strength Tylenol, daily, prior to surgery LFTS normal pre op will obtain APAP level, no abd pain repeat LFTS in a.m, consider RUQ US if worsening/not improving AST 147, ALT 234, ALP 147, total bili normal #IKE: cpap at HS #DVT ppx: ASA BID Per ortho FULL CODE PCP: Ugo Wells Dispo: admit to med/surg Pt was seen and examined in collaboration with Dr. Damon, please see addendum I spent a total of 65 minutes coordinating, documenting and providing care for this patient excluding time spent in the performance of separately billed services or time spent by another provider/QHP. History of Present Illness Chief Complaint: Worsening hip pain and nausea since procedure. Primary Care Provider: Joey Wells, This is a 54-year-old female who has a significant past medical history of GERD, IKE, RLS and insomnia who presents to ED secondary to worsening hip pain a nd nausea since recent right hip arthroplasty. Of significance patient underwent a right total hip arthroplasty on 02/[address] Garcia. Her EBL was 100ml. she was admitted overnight and her hospital stay was uneventful. She had been doing well postoperatively until postop day 2 when she developed nausea. She also was having increasing more pain and she was not able to tolerate her oral Oxy due to the nausea. She states that she has been able to ambulate and that her pain is not necessarily in the right groin. It is more so in the right gluteal area. She reports not tolerating oxycodone in the past. She has had dry heaving but no vomiting. She has not had a bowel movement in 5 days. She has had poor intake over the last 2 to 3 days due to significant nausea. She is passing significant amount of gas. She denies any fever, chills, sweats, lightheadedness, dizziness, chest pain, shortness of breath, abdominal pain, dysuria, increased urgency with urination. She typically does urinate every 2 hours but this is normal for her. She denies any hematuria. She denies any significant lower extremity swelling. Allergies Allergy/AdvReac Type Severity Reaction Status Date / Time No Known Allergies Allergy Unknown Verified 02/19/25 09:23 Home Medications Medication Instructions Recorded Confirmed Type levocetirizine 5 mg tablet (Xyzal) 5 mg PO HS 09/22/20 02/23/25 History omega-3 fatty acids 1,000 mg PO BID 09/22/20 02/23/25 History Elderberry, Vit C, Zinc, Vit D3, 2 cap PO QAM 01/20/25 02/23/25 History Liana Magnesium Malate 300 mg PO QAM 01/20/25 02/23/25 History Neuro-Mag L Threonate 144 mg PO HS 01/20/25 02/23/25 History Vitamin K1/K2 1 tab PO HS 01/20/25 02/23/25 History calcium 315 mg (as 1 tab PO BID 01/20/25 02/23/25 History citrate)-vitamin D3 6.25 mcg (250 unit) tablet (Citracal + Vitamin D Maximum) gabapentin 300 mg capsule 100 mg PO QAM 01/20/25 02/23/25 History glucosamin 375 mg-chond 300 1 cap PO QPM 01/20/25 02/23/25 History mg-collagen 50 mg-hyaluronic acid 2 mg cap meloxicam 15 mg tablet 15 mg PO QAM 01/20/25 02/23/25 History turmeric root extract 500 mg tablet 1,000 mg PO QAM 01/20/25 02/23/25 History gabapentin 300 mg capsule 300 mg PO HS 02/19/25 02/23/25 History acetaminophen 500 mg tablet 1,000 mg (2 x 500 mg) PO Q6H PRN 02/20/25 02/23/25 Rx (Tylenol Extra Strength) Pain #0 tabs aspirin 81 mg tablet,delayed 81 mg PO BID DVT prophylaxis 30 02/20/25 02/23/25 Rx release days #60 tabs cephalexin 500 mg capsule 500 mg PO TID Infection 02/20/25 02/23/25 Rx prophylaxis 5 days #15 caps ondansetron 4 mg disintegrating 4 mg PO Q8H 5 days #15 tabs 02/20/25 02/23/25 Rx tablet oxycodone 5 mg tablet 5 - 10 mg (1 - 2 x 5 mg) PO Q4H 02/20/25 02/23/25 Rx PRN Post op pain control #28 tabs Past Med/Surg History Problem List (Updated 02/23/25 @ 17:06 by Denisa Francisco PA-C) Nausea Constipation S/P total hip arthroplasty Greater trochanteric pain syndrome Right hip pain Sacroiliitis Medical History GERD (gastroesophageal reflux disease) controlled, stable per pt Gastroparesis Restless leg syndrome History of COVID-19 diagnosed 03/31/20--resolved Sleep apnea CPAP-compliant Surgical History History of colonoscopy History of arthroscopy of left knee History of section x2 History of cholecystectomy History of esophagogastroduodenoscopy (EGD) History of tooth extraction Family History Other No family history of adverse response to anesthesia Social History Smoking Status: Never smoker Second Hand Exposure: No; Do You Dip or Chew Tobacco: No; Hx Alcohol Use: No Hx Substance Use: No Preferred Language: Bulgarian Communication Ability: Effective Push Button 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 Required: No Beliefs That Will Affect Care: None Current Living Situation: Spouse and Family Feels Safe at Home: Yes Assistive Devices: Walker Review of Systems Review of Systems: All systems reviewed & are unremarkable except as noted in HPI & below Physical Exam Physical Exam: Constitutional: WD/WN, vitals as above, NAD, sitting up in bed, pleasant, conversing easily Head: Normocephalic, Atraumatic Eyes: conjunctivae normal, anicteric sclerae ENMT: external ear and nose normal, oropharynx normal Neck: trachea midline, no thyromegaly normal visual inspection Respiratory: CTAB, no W/R/R, normal inspection, no accessory muscle use Cardiovascular: RRR, no murmur, no edema Chest: normal inspection of chest Abdomen: S, NT, ND, + hypoactive BS x 4 Musculoskeletal: no cyanosis or clubbing, extremities AROM x 4 , R hip dressing CDI, no surrounding erythema Skin: no rashes, warm and dry normal turgor Neurologic: no face palsy, no dysarthria CN's II-XI intact bilaterally and moves all extremities Psychiatric: A+Ox3, euthymic affect Results & Data Results & Data Vital Signs (Past 12 Hours) Vital Signs Temp Pulse Pulse Resp BP BP Pulse Ox 02/23/25 14:30 66 20 147/85 H 96 02/23/25 13:48 36.8 C 76 19 142/79 H 97 O2 Del Method 02/23/25 14:30 Room Air 02/23/25 13:48 Room Air Laboratory Results Short CBC 02/23/25 Range/Units 14:24 WBC 12.94 H (4.8-10.8) K/ul Hgb 12.2 (12.0-16.0) g/dL Hct 36.5 L (37.0-47.0) % Plt Count 308 (130-400) K/uL BMP 02/23/25 14:24 Sodium 138 Potassium 4.2 Chloride 106 Carbon Dioxide 26 BUN 15 Creatinine 0.56 L Glucose 123 H Calcium 9.5 Liver Function 02/23/25 Range/Units 14:24 Total Bilirubin 0.6 (0.2-1.0) mg/dl AST 147 H (13-39) U/L ALT 234 H (7-52) U/L Alkaline Phosphatase 147 H (34-104) U/L Albumin 3.8 (3.4-5.0) gm/dl Medications Administered Current Inpatient Medications Sodium Chloride (Nss) 1,000 mls @ 80 mls/hr IV .[id number] TRINITY Stop: 02/26/25 16:44 Last Admin: 02/23/25 16:54 Dose: 80 mls/hr Morphine Sulfate (Morphine Sulfate 4 Mg/Ml 1 Ml Carp\Vial) 4 mg IV Q4H PRN PRN Reason: Severe Pain (Scale 7, 8, 9,10) Stop: 03/09/25 17:03 Tramadol HCl (Tramadol Hcl 50 Mg Tablet) 50 mg PO Q4H PRN PRN Reason: Moderate Pain (Scale 4, 5, 6) Stop: 03/25/25 17:03 COVID-19 Results Results COVID-19 Adm Lab Results: RBC 4.25 M/uL (4.20-5.40) 02/23/25 WBC 12.94 K/ul (4.8-10.8) H 02/23/25 Hgb 12.2 g/dL (12.0-16.0) 02/23/25 Hct 36.5 % (37.0-47.0) L 02/23/25 Plt Count 308 K/uL (130-400) 02/23/25 Neutrophils (%) (Auto) 84.6 % 02/23/25 Lymphocytes (%) (Auto) 9.1 % 02/23/25 Monocytes # (Auto) 0.60 K/uL (0.11-0.59) H 02/23/25 Eosinophils # (Auto) 0.02 K/uL (0.00-0.50) 02/23/25 Immature Granulocyte % (Auto) 0.9 % 02/23/25 Neutrophils # (Auto) 10.94 K/uL (1.40-6.50) H 02/23/25 Lymphocytes # (Auto) 1.18 K/uL (1.20-3.40) L 02/23/25 Monocytes # (Auto) 0.60 K/uL (0.11-0.59) H 02/23/25 Eosinophils # (Auto) 0.02 K/uL (0.00-0.50) 02/23/25 Basophils # (Auto) 0.08 K/uL (0.00-0.20) 02/23/25 Immature Granulocyte # (Auto) 0.12 K/uL (0.01-0.20) 5 Na 138 mmol/L (136-145) 02/23/25 K 4.2 mmol/L (3.5-5.1) 02/23/25 Cl 106 mmol/L (98-107) 02/23/25 CO2 26 mmol/L (21-32) 02/23/25 Anion Gap 6 (3-11) 02/23/25 BUN 15 mg/dl (6-23) 02/23/25 Creatinine 0.56 mg/dl (0.6-1.2) L 02/23/25 BUN/Creatinine Ratio 26.8 (10-20) H 02/23/25 Glucose Level 123 mg/dl (70-99(Fasting)) H 02/23/25 Ca 9.5 mg/dl (8.6-10.3) 02/23/25 Total Bilirubin 0.6 mg/dl (0.2-1.0) 02/23/25 AST/SGOT 147 U/L (13-39) H 02/23/25 ALT/SGPT 234 U/L (7-52) H 02/23/25 Alkaline Phosphatase 147 U/L (34-104) H 02/23/25 Total Protein 7.5 gm/dl (6.0-8.3) 02/23/25 Albumin 3.8 gm/dl (3.4-5.0) 02/23/25 Globulin 3.7 gm/dl (2.5-4.0) 02/23/25 Albumin/Globulin Ratio 1.0 (0.9-2) 02/23/25 Code Status & VTE Plan Code Status FULL CODE VTE Prophylaxis Plan VTE Prophylaxis will be ordered: Yes Supervising Physician Co-Signing Physician Notes Patient seen and examined at bedside. present as well. Right hip tenderness worse with palpation and movement. Nausea/vomiting since Sunday. Not tolerating PO. On exam, right hip tenderness to palpation, benign abdomen. Creatinine at baseline, elevated LFTs could be reactionary vs. infection. Presentation consistent with possible ileus or developing SBO vs. just constipation causing not taking PO pain medications. Check KUB, xray of right hip. IV hydration. Zofran not effective per patient, trial regland, will stop if SBO/ileus and trial phenergan. Switch to dilaudid as patient is not tolerating m orphine or oxycodone well. I have seen and discussed the case with the collaborating advanced practitioner. I agree with the above H&P. I have reviewed and confirmed the patients medical history, the findings on physical examination, and the patients diagnosis and treatment plan with Denisa Francisco PA-C and agree with the information documented. I spent a total of 30 minutes coordinating, documenting, and providing care for this patient excluding time spent in the performance of separately billed services. All of the aforementioned completed outside of collaborating with the assigned advanced practitioner for a full treatment plan. I have reviewed the advanced practitioner's documentation, and I agree with, and take responsibility for the plan of care
[2025-02-23] MEDS ORDERED: MoRPHine SULFATE 4 MG/ML 1 ML CARP\\VIAL IV PRN (17:04)
[2025-02-23] MEDS ORDERED: HYDROmorphone INJ 0.5 MG/0.5 ML SYR IV PRN (17:29)
--- NOTE | 2025-02-23 18:16 | XRay Report ---
EXAMINATION: X-ray hip right 2 view with pelvis CLINICAL HISTORY: Status post right hip arthroplasty x 5 days, increased pain and constipation PRIORS: 02/19/2025 TECHNIQUE: AP view pelvis, 2 views hip FINDINGS: Bone stock and alignment is normal. Right total hip arthroplasty present with near anatomic alignment. No surrounding lucency, periprosthetic fracture or dislocation. An extremely large amount of formed stool present throughout the visualized colon, especially the sigmoid colon. No dilated loops of bowel. SI joints are patent. IMPRESSION: 1. Right total hip arthroplasty with near anatomic alignment. 2. Extremely large amount of formed stool in the colon, especially the sigmoid colon. ACT 112: Positive. There are findings on this examination that require communication between the performing entity and the patient following Patient Test Result Information Act ([place] ACT 112) guidelines. Electronically signed by Bernadette Fraire 02-23-2025 6:16 PM
[2025-02-23] MEDS ORDERED: ALUMINUM/MAGNESIUM SUSP 30 ML UDC PO PRN (18:17)
--- NOTE | 2025-02-23 18:30 | XRay Report ---
EXAMINATION: X-ray KUB/abdomen 1 view CLINICAL HISTORY: Status post right total hip arthroplasty 5 days ago, constipation PRIORS: None TECHNIQUE: Single frontal view abdomen FINDINGS: Overlying bowel gas and stool obscures fine bone detail. Surgical clips in the right upper quadrant. Right total hip arthroplasty in the [id number] and dictated under separate heading. A large amount of formed stool present throughout the colon. No dilated loops of bowel. No air-fluid levels. No acute osseous abnormality. IMPRESSION: Large amount of formed stool throughout the colon, most pronounced in the sigmoid colon, with nondilated, nonobstructed bowel gas pattern. ACT 112: Positive. There are findings on this examination that require communication between the performing entity and the patient following Patient Test Result Information Act ([place] ACT 112) guidelines. Electronically signed by Bernadette Fraire 02-23-2025 6:30 PM
[2025-02-23] MEDS: METOCLOPRAMIDE HCL INJ 5 MG/ML 2 ML VIAL IV ONE (18:51)
[2025-02-23] MEDS: ACETAMINOPHEN 500 MG TAB PO SCH (18:55)
--- NOTE | 2025-02-23 19:13 | Orthopedic Consultation ---
Date of Consultation February 23, 2025 Assessment & Plan (1) S/P total hip arthroplasty: 1. POD #4 status post right total hip arthroplasty - Posterior hip precautions - May weight-bear as tolerated right lower extremity - Ice right hip as needed for pain and swelling - Multimodal pain control, avoid oxycodone given poor tolerance. - Physical therapy and Occupational Therapy consults recommended - DVT prophylaxis aspirin 81 mg twice daily -Incentive spirometer 10 times per hour when awake - Discharge planning to home once medically improved 2. Postoperative nausea and constipation - Large stool burden noted on x-ray imaging obtained today. - Will defer management of nausea and constipation to medicine team at this time. - May benefit from GI consultation if unable to have bowel movement in the near future. 3. Elevated LFTs - AST ALT and ALP elevated today. Patient was taking 6-9 extra-strength Tylenol daily, hospitalist team has ordered acetaminophen level, they will consider ultrasound of the right upper quadrant after repeating LFTs in the morning. History of Present Illness Reason for Consultation: Status post right total hip arthroplasty Attending Physician: Noah Damon MD History of Present Illness The patient is a 54-year-old female with history of IKE, GERD, chronic fatigue, recent right total hip arthroplasty performed on 02/19/[address] Pilo Garcia. She was admitted to the hospital postoperatively after her total hip she was discharged to home on 02/20/2025. She had been doing fairly well at home, however was having some nausea with her pain medications including oxycodone. She was trying to avoid the oxycodone and take more Tylenol and meloxicam. Her pain became significant yesterday, and continued to be worse today. She called the office earlier today, and was advised to go to the ER due to her uncontrolled pain. She was seen in the emergency department today and admitted to the hospitalist service. Currently she complains of pain in her right gluteal and thigh region rated 8 out of 10. Is worse with movement better with rest. Her nausea is improved wit h IV Zofran which she was given when she came to the hospital today. She denies any chest pain or shortness of breath. She has been passing gas and surgery but has not had any bowel movements. She states that she was taking around 6-9 extra-strength Tylenol pills per day since surgery. She is taking aspirin 81 mg twice daily for DVT prophylaxis. She has been taking meloxicam daily, and oxycodone every 4-6 hours as needed for more moderate to severe pain. She was taking oral Zofran at home which did not seem to be helping much with her nausea. If anything the Zofran seem to make her feel worse. Allergies Allergy/AdvReac Type Severity Reaction Status Date / Time No Known Allergies Allergy Unknown Verified 02/19/25 09:23 Home Medications Medication Instructions Recorded Confirmed Type levocetirizine 5 mg tablet (Xyzal) 5 mg PO HS 09/22/20 02/23/25 History omega-3 fatty acids 1,000 mg PO BID 09/22/20 02/23/25 History Elderberry, Vit C, Zinc, Vit D3, 2 cap PO QAM 01/20/25 02/23/25 History Liana Magnesium Malate 300 mg PO QAM 01/20/25 02/23/25 History Neuro-Mag L Threonate 144 mg PO HS 01/20/25 02/23/25 History Vitamin K1/K2 1 tab PO HS 01/20/25 02/23/25 History calcium 315 mg (as 1 tab PO BID 01/20/25 02/23/25 History citrate)-vitamin D3 6.25 mcg (250 unit) tablet (Citracal + Vitamin D Maximum) gabapentin 300 mg capsule 100 mg PO QAM 01/20/25 02/23/25 History glucosamin 375 mg-chond 300 1 cap PO QPM 01/20/25 02/23/25 History mg-collagen 50 mg-hyaluronic acid 2 mg cap meloxicam 15 mg tablet 15 mg PO QAM 01/20/25 02/23/25 History turmeric root extract 500 mg tablet 1,000 mg PO QAM 01/20/25 02/23/25 History gabapentin 300 mg capsule 300 mg PO HS 02/19/25 02/23/25 History acetaminophen 500 mg tablet 1,000 mg (2 x 500 mg) PO Q6H PRN 02/20/25 02/23/25 Rx (Tylenol Extra Strength) Pain #0 tabs aspirin 81 mg tablet,delayed 81 mg PO BID DVT prophylaxis 30 02/20/25 02/23/25 Rx release days #60 tabs cephalexin 500 mg capsule 500 mg PO TID Infection 02/20/25 02/23/25 Rx prophylaxis 5 days #15 caps ondansetron 4 mg disintegrating 4 mg PO Q8H 5 days #15 tabs 02/20/25 02/23/25 Rx tablet oxycodone 5 mg tablet 5 - 10 mg (1 - 2 x 5 mg) PO Q4H 02/20/25 02/23/25 Rx PRN Post op pain control #28 tabs Patient History Medical History GERD (gastroesophageal reflux disease) controlled, stable per pt Gastroparesis Restless leg syndrome History of COVID-19 diagnosed 03/31/20--resolved Sleep apnea CPAP-compliant Surgical History History of colonoscopy History of arthroscopy of left knee History of section x2 History of cholecystectomy History of esophagogastroduodenoscopy (EGD) History of tooth extraction Family History Other No family history of adverse response to anesthesia Social History Smoking Status: Never smoker Second Hand Exposure: No; Do You Dip or Chew Tobacco: No; Tobacco Cessation Education Requested by Patient: No Hx Alcohol Use: No Hx Substance Use: No Preferred Language: Sri Lankan Communication Ability: Effective Seaman Officer Required: No Beliefs That Will Affect Care: None Current Living Situation: Spouse and Family Other Information That Helps Us Care for You: No Feels Safe at Home: Yes Safety Concerns: Feels Safe At This Time Assistive Devices: CPAP, Glasses and Walker Physical Exam Physical Exam: General: Patient is awake, alert, no acute distress. Most recent temperature 37.7 otherwise vital signs are stable. Abdominal: Abdomen is soft, nontender, nondistended. Bowel sounds are auscultated in all 4 quadrants though are somewhat hypoactive. MSK: Right lower extremity: - Silverlon dressing about the right hip clean dry and intact without any bloody strikethrough - No palpable fluid collections about th e right hip. - Thigh and lower leg are soft and compr essible. - Calf soft nontender. - Sensation intact light touch L4-S1 april matomes - 5 out of 5 strength with ankle plantar flexion and dorsiflexion - DP and PT pulses palpable Results & Data Vital Signs (Past 12 Hours) Vital Signs Temp Pulse Pulse Resp BP BP Pulse Ox 02/23/25 18:17 37.7 C H 66 18 128/73 99 02/23/25 17:51 67 16 137/79 98 02/23/25 14:30 66 20 147/85 H 96 02/23/25 13:48 36.8 C 76 19 142/79 H 97 O2 Del Method 02/23/25 18:17 Room Air 02/23/25 17:51 Room Air 02/23/25 14:30 Room Air 02/23/25 13:48 Room Air Diagnostic Findings AP pelvis, AP and lateral x-rays of the right hip obtained today 02/23/2025 independently reviewed interpreted by myself demonstrate no acute fracture or dislocation. Recent right total hip arthroplasty is seen well-fixed well aligned. There is a large stool burden noted within the colon. (1) S/P total hip arthroplasty Laterality: right Qualified Code(s): Z96.641 - Presence of right artificial hip joint
[2025-02-23] MEDS: POLYETHYLENE (MIRALAX) 17 GM PACK PO SCH (20:55)
[2025-02-23] MEDS: DOCUSATE SODIUM/SENNA 50/8.6MG TAB PO SCH (20:56)
[2025-02-23] MEDS: SIMETHICONE 80 MG CHEW PO SCH (20:57)
[2025-02-23] MEDS: ASPIRIN 81 MG ECTAB PO SCH (20:57)
[2025-02-23] MEDS: GABAPENTIN 300 MG CAP PO SCH (20:57)
[2025-02-23] MEDS: CETIRIZINE HCL 10 MG TABLET PO SCH (20:58)
[2025-02-23] MEDS: PROMETHAZINE 12.5 MG/50.5 ML BAG IV PRN (21:44)
[2025-02-24] MEDS: MELOXICAM 7.5 MG TAB PO SCH (08:11)
--- NOTE | 2025-02-24 09:18 | Orthopedic Progress Note ---
Date of Service February 24, 2025 Assessment & Plan (1) S/P total hip arthroplasty: Plan: 1. POD #5 status post right total hip arthroplasty - Overall patient seems to be doing much better. Her pain seems to be better controlled and she is not having as much nausea now -tolerating tramadol and Dilaudid better. Has yet to have a bowel movement. - Vital signs are stable. - Right hip x-ray from yesterday demonstrates expected findings postoperatively. - Posterior hip precautions - May weight-bear as tolerated right lower extremity - Ice right hip as needed for pain and swelling - Physical therapy and Occupational Therapy consults - DVT prophylaxis aspirin 81 mg twice daily - Continue Keflex as prescribed - Leave silverlon dressing in place -will be removed at 2 weeks - Incentive spirometer 10 times per hour when awake - Discharge planning to home once medically improved 2. Postoperative nausea and constipation - Large stool burden noted on x-ray imaging obtained today. - Will defer management of nausea and constipation to medicine team at this time. - May benefit from GI consultation if unable to have bowel movement in the near future. 3. Elevated LFTs - Patient was taking 6-9 extra-strength Tylenol daily. - Acetaminophen level less than 3. - AST ALT and alkaline phosphatase elevated yesterday. - Defer to medicine team on further management and recommendations moving forward - Will follow repeat liver enzyme levels if obtained. Admission and Anticipated Discharge Date Admission Date: February 23, 2025 Subjective Patient seen resting in bed. She states that she is doing much better today from a pain standpoint. Pain is much more tolerable now, more localized to her gluteus and upper thigh rather than her "I need a hip replacement" pain. She is still a little nauseous but certainly nowhere near as nauseous as when she came in. Not having any vomiting. She just completed a session with physical t herapy and feels that it went well. Has not had a bowel movement yet. Denies any abdominal pain. Denies any numbness or tingling in her leg or toes. Physical Exam Constitutional: Resting comfortably in bed. Pleasant. Eating a popsicle. Cardiovascular: Right DP pulse 2+ Musculoskeletal: Right lower extremity: Silverlon dressing is in place on the right posterior hip. There is no drainage. No surrounding erythema or significant ecchymotic changes. Mild amount of expected soft tissue swelling about the hip and thigh. No tenderness to light palpation about the hip surrounding the silverlon dressing. No pain with gentle passive hip flexion and extension or passive logroll of the hip. No calf tenderness to palpation. Strength 5/5 with ankle plantarflexion dorsiflexion eversion. Moves all toes. Skin: Pain, warm, dry Neurologic: No sensory deficits right lower extremity light touch L3-S1 distribution Results & Data Vital Signs (Past 12 Hours) Vital Signs Temp Pulse Resp BP Pulse Ox O2 Del Method 02/24/25 08:00 98.8 F 71 16 127/79 94 Room Air 02/23/25 21:49 99.0 F 63 16 122/73 96 Room Air Laboratory Results 02/23/25 02/23/25 19:26 14:24 WBC 12.94 H RBC 4.25 Hgb 12.2 Hct 36.5 L MCV 85.9 MCH 28.7 MCHC 33.4 RDW Std Deviation 39.3 RDW Coeff of Edgardo 12.5 Plt Count 308 MPV 9.2 L Immature Gran % (Auto) 0.9 Neut % (Auto) 84.6 Lymph % (Auto) 9.1 Terry % (Auto) 4.6 Eos % (Auto) 0.2 Baso % (Auto) 0.6 Neut # (Auto) 10.94 H Lymph # (Auto) 1.18 L Terry # (Auto) 0.60 H Eos # (Auto) 0.02 Baso # (Auto) 0.08 Immature Gran # (Auto) 0.12 Sodium 138 Potassium 4.2 Chloride 106 Carbon Dioxide 26 Anion Gap 6 BUN 15 Creatinine 0.56 L Est Cr Clr Drug Dosing Not Reportable eGFR 108.39 BUN/Creatinine Ratio 26.8 H Glucose 123 H Calcium 9.5 Total Bilirubin 0.6 AST 147 H ALT 234 H Alkaline Phosphatase 147 H Total Protein 7.5 Albumin 3.8 Globulin 3.7 Albumin/Globulin Ratio 1.0 Acetaminophen < 3 L Diagnostic Findings Hip/Pelvis X-Ray 02/23/25 16:25 EXAMINATION: X-ray hip right 2 view with pelvis CLINICAL HISTORY: Status post right hip arthroplasty x 5 days, increased pain and constipation PRIORS: 02/19/2025 TECHNIQUE: AP view pelvis, 2 views hip FINDINGS: Bone stock and alignment is normal. Right total hip arthroplasty present with near anatomic alignment. No surrounding lucency, periprosthetic fracture or dislocation. An extremely large amount of formed stool present throughout the visualized colon, especially the sigmoid colon. No dilated loops of bowel. SI joints are patent. IMPRESSION: 1. Right total hip arthroplasty with near anatomic alignment. 2. Extremely large amount of formed stool in the colon, especially the sigmoid colon. ACT 112: Positive. There are findings on this examination that require communication between the performing entity and the patient following Patient Test Result Information Act ([place] ACT 112) guidelines. Electronically signed by Bernadette Fraire 02-23-2025 6:16 PM KUB X-Ray 02/23/25 16:45 EXAMINATION: X-ray KUB/abdomen 1 view CLINICAL HISTORY: Status post right total hip arthroplasty 5 days ago, constipation PRIORS: None TECHNIQUE: Single frontal view abdomen FINDINGS: Overlying bowel gas and stool obscures fine bone detail. Surgical clips in the right upper quadrant. Right total hip arthroplasty in the [id number] and dictated under separate heading. A large amount of formed stool present throughout the colon. No dilated loops of bowel. No air-fluid levels. No acute osseous abnormality. IMPRESSION: Large amount of formed stool throughout the colon, most pronounced in the sigmoid colon, with nondilated, nonobstructed bowel gas pattern. ACT 112: Positive. There are findings on this examination that require communication between the performing entity and the patient following Patient Test Result Information Act ([place] ACT 112) guidelines. Electronically signed by Bernadette Fraire 02-23-2025 6:30 PM (1) S/P total hip arthroplasty Laterality: right Qualified Code(s): Z96.641 - Presence of right artificial hip joint
[2025-02-24 09:56] LABS: Hematocrit (blood only) 33.1 % (37.0-47.0); Hemoglobin 10.7 g/dL (12.0-16.0); Immature Granulocytes # (auto) 0.07 K/uL (0.01-0.20); Immature Granulocytes % (auto) 0.7 %; Mean Corpuscular Hemoglobin 28.6 pg (25.0-34.0); Mean Corpuscular Volume 88.5 fL (80.0-100.0); Platelet Count 272 K/uL (130-400); RDW Standard Deviation 41.1 fL (36.4-46.3); Red Blood Count 3.74 M/uL (4.20-5.40); White Blood Count 10.56 K/ul (4.8-10.8)
[2025-02-24 10:10] LABS: Alanine Aminotransferase 188.0 U/L (7-52); Albumin Globulin Ratio 1.1 (0.9-2); Albumin Level 3.4 gm/dl (3.4-5.0); Alkaline Phosphatase 178.0 U/L (34-104); Anion Gap 4.0 (3-11); Bilirubin,Total 0.5 mg/dl (0.2-1.0); Blood Urea Nitrogen 19.0 mg/dl (6-23); Calcium 8.7 mg/dl (8.6-10.3); Carbon Dioxide 28.0 mmol/L (21-32); Chloride 106.0 mmol/L (98-107); Creatinine Clr Calc Pharmacy 106.3 ml/min; Globulin 3.0 gm/dl (2.5-4.0); Glucose 102.0 mg/dl (70-99(Fasting)); Magnesium 2.0 mg/dl (1.7-2.4); Potassium 3.7 mmol/L (3.5-5.1); Sodium 138.0 mmol/L (136-145); Total Protein 6.4 gm/dl (6.0-8.3)
[2025-02-24] MEDS: SOD PHOSPHATE/SOD BIPHOSPHATE ENEMA 132 ML BTL PR STA (11:29)
[2025-02-24] MEDS: ONDANSETRON INJ 2 MG/ML 2 ML VIAL IV PRN (11:46)
[2025-02-24] MEDS: METHYLNALTREXONE BROMIDE 12 MG/0.6 ML VIAL SQ ONE (14:13)
--- NOTE | 2025-02-24 17:25 | Hospitalist Progress Note ---
Date of Service February 24, 2025 Assessment & Plan (1) S/P total hip arthroplasty: (2) Right hip pain: (3) Constipation: (4) Nausea: Plan This is a 54-year-old female who has a significant past medical history of GERD, IKE, RLS and insomnia who presents to ED secondary to worsening hip pain and nausea since recent right hip arthroplasty. #S/P R DELORIS on 02/19 #Post op pain floor hide on [place] and tramadol given myself Obtain right hip xr Will defer wound management to ortho Continue perioperative keflex per ortho ASA BID per ortho, if unable to tolerate PO will consider SQ Lovenox Pt is not tolerated zofran so will switch antiemetic to IV phenergan prn IV morphine for severe pain, prn tramadol for moderate pain schedule tylenol Appreciate Ortho input and recommendation #Post op nausea #Constipation r/o ileus, obtain KUB encourage ambulation IVF, Clear liquid diet, ADAT Miralax BID, Senna S 2 tab at HS, Simethicone TID Bowel is not moved even with the suppository followed by Fleet enema and after that subcu Relistor was given She has been trying hard since this morning for bowel movement and has been most of the time in the toilet She will be given milk of magnesia 30 mL mL this evening Has nausea and getting Zofran and Phenergan #Leukocytosis improved from surgery, 16k>12k no apparent source of infection or SIRS, but will monitor closely White count seems to be normalized #Elevated LFTS pt reports 6-9 extra strength Tylenol, daily, prior to surgery LFTS normal pre op will obtain APAP level, no abd pain repeat LFTS in a.m, consider RUQ US if worsening/not improving AST 147, ALT 234, ALP 147, total bili normal Will monitor LFTs while in the hospital #IKE: cpap at HS #DVT ppx: ASA BID Per ortho FULL CODE PCP: Ugo Wells Dispo: admit to med/surg I spent a total of 57 minutes coordinating, documenting and providing care for this patient excluding time spent in the performance of separately billed services or time spent by another provider/QHP. Admission and Anticipated Discharge Date Admission Date: February 23, 2025 Subjective 02/24/2025 The patient was seen and examined in telemetry unit She came in with abdominal bloating and also noted to have severe constipation She also had pain in the right hip Review of Systems Review of Systems: All systems reviewed and are unremarkable except as noted below Physical Exam Physical Exam: The patient was seen and examined in medical floor Constitutional: well developed, well nourished, + ill appearing and + obese Eyes: PERRL, conjunctivae normal, anicteric sclerae ENMT: external ear and nose normal, oropharynx normal Neck: trachea midline, no thyromegaly Respiratory: no respiratory distress Auscultation: lungs clear to auscultation bilaterally Cardiovascular: Rate/Rhythm: regular rate and regular rhythm; not tachycardic Heart Sounds: normal S1 and normal S2; no abnormal opening sounds Gastrointestinal (Abdomen): Inspection/Auscultation: + abdomen distended and normal bowel sounds Percussion/Palpation: + abdomen tender ( mildly tender left lower quadrant) and abdomen soft Musculoskeletal: Right hip pain with movement Neurologic: normal touch/pain/proprioception and moves all extremities; no focal motor deficits Lymphatic: no cervical or axillary lymphadenopathy Results & Data Results & Data Vital Signs (Past 12 Hours) Vital Signs Temp Pulse Resp BP Pulse Ox O2 Del Method 02/24/25 14:57 37.1 C 74 16 125/72 99 Room Air 02/24/25 08:30 Room Air 02/24/25 08:00 37.1 C 71 16 127/79 94 Room Air Laboratory Results Short CBC 02/24/25 Range/Units 09:30 WBC 10.56 (4.8-10.8) K/ul Hgb 10.7 L (12.0-16.0) g/dL Hct 33.1 L (37.0-47.0) % Plt Count 272 (130-400) K/uL BMP 02/24/25 09:30 Sodium 138 Potassium 3.7 Chloride 106 Carbon Dioxide 28 BUN 19 Creatinine 0.70 Glucose 102 H Calcium 8.7 Liver Function 02/24/25 Range/Units 09:30 Total Bilirubin 0.5 (0.2-1.0) mg/dl AST 89 H (13-39) U/L ALT 188 H (7-52) U/L Alkaline Phosphatase 178 H (34-104) U/L Albumin 3.4 (3.4-5.0) gm/dl Medications Administered Current Inpatient Medications Acetaminophen (Acetaminophen 500 Mg Tab) 500 mg PO QID [facility] Stop: 03/25/25 18:16 Last Admin: 02/25/25 08:56 Dose: 500 mg Al Hydrox/Mg Hydrox/Simethicone (Aluminum/Magnesium Susp 30 Ml Udc) 30 ml PO Q6H PRN PRN Reason: Dyspepsia Stop: 03/25/25 18:16 Aspirin (Aspirin 81 Mg Ectab) 81 mg PO BID [facility] Stop: 03/25/25 20:59 Last Admin: 02/25/25 08:56 Dose: 81 mg Cephalexin HCl (Cephalexin 500 Mg Cap) 500 mg PO QID [facility]; Protocol Stop: 03/02/25 20:59 Last Admin: 02/25/25 08:56 Dose: 500 mg Cetirizine HCl (Cetirizine Hcl 10 Mg Tablet) 10 mg PO [facility] Stop: 03/25/25 20:59 Last Admin: 02/24/25 20:54 Dose: 10 mg Gabapentin (Gabapentin 300 Mg Cap) 300 mg PO [facility] Stop: 03/25/25 20:59 Last Admin: 02/24/25 20:53 Dose: 300 mg Hydromorphone HCl (Hydromorphone Inj 0.5 Mg/0.5 Ml Syr) 0.5 mg IV Q6H PRN PRN Reason: Severe Pain (Scale 7, 8, 9,10) Stop: 03/09/25 17:28 Sodium Chloride (Nss) 1,000 mls @ 80 mls/hr IV .[id number] [facility] Stop: 02/26/25 16:44 Last Admin: 02/25/25 09:09 Dose: 80 mls/hr Promethazine HCl (Phenergan) 12.5 mg in 50.5 mls @ 202 mls/hr IV Q6H PRN PRN Reason: Nausea And Vomiting Stop: 03/25/25 18:16 Last Infusion: 02/23/25 22:40 Dose: Infused Ketorolac Tromethamine (Ketorolac 30 Mg/Ml Vial) 30 mg IV Q6H PRN PRN Reason: Pain Stop: 03/01/25 18:10 Last Admin: 02/25/25 08:49 Dose: 30 mg Meloxicam (Meloxicam 7.5 Mg Tab) [facility] Stop: 03/26/25 08:59 Last Admin: 02/24/25 08:11 Dose: 15 mg Ondansetron HCl (Ondansetron Inj 2 Mg/Ml 2 Ml Vial) 4 mg IV Q6H PRN PRN Reason: Nausea And Vomiting Stop: 03/26/25 11:40 Last Admin: 02/25/25 05:09 Dose: 4 mg Pantoprazole Sodium (Pantoprazole 40 Mg Tab) 40 mg PO QAM [facility] Stop: 03/26/25 18:14 Last Admin: 02/25/25 08:56 Dose: 40 mg Polyethylene Glycol (Polyethylene (Miralax) 17 Gm Pack) 17 gm PO BID [facility] Stop: 03/25/25 20:59 Last Admin: 02/25/25 08:49 Dose: 17 gm Senna/Docusate Sodium (Docusate Sodium/Senna 50/8.6mg Tab) 2 tab PO HS [facility] Stop: 03/25/25 20:59 Last Admin: 02/24/25 20:52 Dose: 2 tab Simethicone (Simethicone 80 Mg Chew) 80 mg PO TID [facility] Stop: 03/25/25 20:59 Last Admin: 02/25/25 09:08 Dose: 80 mg Tramadol HCl (Tramadol Hcl 50 Mg Tablet) 50 mg PO Q4H PRN PRN Reason: Moderate Pain (Scale 4, 5, 6) Stop: 03/25/25 17:03 Last Admin: 02/25/25 00:04 Dose: 50 mg (1) S/P total hip arthroplasty Laterality: right Qualified Code(s): Z96.641 - Presence of right artificial hip joint
[2025-02-24] MEDS: MAGNESIUM HYDROXIDE SUSP 30 ML UDC PO ONE (18:51)
[2025-02-24] MEDS: KETOROLAC 30 MG/ML VIAL IV PRN (19:39)
--- NOTE | 2025-02-25 09:18 | Hospitalist Progress Note ---
Date of Service February 25, 2025 Assessment & Plan (1) S/P total hip arthroplasty: (2) Right hip pain: (3) Constipation: (4) Nausea: Plan This is a 54-year-old female who has a significant past medical history of GERD, IKE, RLS and insomnia who presents to ED secondary to worsening hip pain and nausea since recent right hip arthroplasty. #S/P R DELORIS on 02/19 #Post op pain floor hide on [place] and tramadol given myself Obtain right hip xr Will defer wound management to ortho Continue perioperative keflex per ortho ASA BID per ortho, if unable to tolerate PO will consider SQ Lovenox Pt is not tolerated zofran so will switch antiemetic to IV phenergan prn IV morphine for severe pain, prn tramadol for moderate pain schedule tylenol Appreciate Ortho input and recommendation Right hip pain is better today and she has been on intravenous Toradol and holding meloxicam for now She will be discharged on oral meloxicam as before and was advised to take less of narcotic pain medications to avoid constipation #Post op nausea #Constipation r/o ileus, obtain KUB encourage ambulation IVF, Clear liquid diet, ADAT Miralax BID, Senna S 2 tab at HS, Simethicone TID Bowel is not moved even with the suppository followed by Fleet enema and after that subcu Relistor was given She has been trying hard since this morning for bowel movement and has been most of the time in the toilet She will be given milk of magnesia 30 mL mL this evening Has nausea and getting Zofran and Phenergan Her bowel movement this morning and will continue her current bowel regimen Will give more IV fluid and also was advised to drink more fluid orally #Leukocytosis improved from surgery, 16k>12k no apparent source of infection or SIRS, but will monitor closely White count seems to be normalized #Elevated LFTS pt reports 6-9 extra strength Tylenol, daily, prior to surgery LFTS normal pre op will obtain APAP level, no abd pain repeat LFTS in a.m, consider RUQ US if worsening/not improving AST 147, ALT 234, ALP 147, total bili normal Will monitor LFTs while in the hospital LFTs are getting better and the cause of increased LFTs likely secondary to hypotensive episode Will monitor LFTs #IKE: cpap at HS #DVT ppx: ASA BID Per ortho FULL CODE PCP: Ugo Wells Dispo: admit to med/surg I spent a total of 57 minutes coordinating, documenting and providing care for this patient excluding time spent in the performance of separately billed services or time spent by another provider/QHP. Admission and Anticipated Discharge Date Admission Date: February 23, 2025 Subjective 02/24/2025 The patient was seen and examined in medical unit She came in with abdominal bloating and also noted to have severe constipation She also had pain in the right hip 02/25/2025 The patient was seen and examined in medical floor She has been feeling little better today and she has had her bowel movement this morning Her pain is reasonably controlled with intravenous Toradol on top of narcotic pain medication Review of Systems Review of Systems: All systems reviewed and are unremarkable except as noted below Physical Exam Physical Exam: The patient was seen and examined in medical floor Constitutional: well developed, well nourished, + ill appearing and + obese Eyes: PERRL, conjunctivae normal, anicteric sclerae ENMT: external ear and nose normal, oropharynx normal Neck: trachea midline, no thyromegaly Respiratory: no respiratory distress Auscultation: lungs clear to auscultation bilaterally Cardiovascular: Rate/Rhythm: regular rate and regular rhythm; not tachycardic Heart Sounds: normal S1 and normal S2; no abnormal opening sounds Gastrointestinal (Abdomen): Inspection/Auscultation: + abdomen distended and normal bowel sounds Percussion/Palpation: + abdomen tender ( mildly tender left lower quadrant) and abdomen soft Neurologic: normal touch/pain/proprioception and moves all extremities; no focal motor deficits Lymphatic: no cervical or axillary lymphadenopathy Results & Data Results & Data Vital Signs (Past 12 Hours) Vital Signs Temp Pulse Resp BP Pulse Ox O2 Del Method 02/25/25 07:37 37.1 C 76 14 122/59 L 95 Room Air 02/24/25 23:35 CPAP 02/24/25 22:26 36.9 C 66 14 119/69 98 Room Air Laboratory Results Short CBC 02/24/25 Range/Units 09:30 WBC 10.56 (4.8-10.8) K/ul Hgb 10.7 L (12.0-16.0) g/dL Hct 33.1 L (37.0-47.0) % Plt Count 272 (130-400) K/uL BMP 02/24/25 09:30 Sodium 138 Potassium 3.7 Chloride 106 Carbon Dioxide 28 BUN 19 Creatinine 0.70 Glucose 102 H Calcium 8.7 Liver Function 02/24/25 Range/Units 09:30 Total Bilirubin 0.5 (0.2-1.0) mg/dl AST 89 H (13-39) U/L ALT 188 H (7-52) U/L Alkaline Phosphatase 178 H (34-104) U/L Albumin 3.4 (3.4-5.0) gm/dl Medications Administered Current Inpatient Medications Acetaminophen (Acetaminophen 500 Mg Tab) 500 mg PO QID [facility] Stop: 03/25/25 18:16 Last Admin: 02/25/25 08:56 Dose: 500 mg Al Hydrox/Mg Hydrox/Simethicone (Aluminum/Magnesium Susp 30 Ml Udc) 30 ml PO Q6H PRN PRN Reason: Dyspepsia Stop: 03/25/25 18:16 Aspirin (Aspirin 81 Mg Ectab) 81 mg PO BID [facility] Stop: 03/25/25 20:59 Last Admin: 02/25/25 08:56 Dose: 81 mg Cephalexin HCl (Cephalexin 500 Mg Cap) 500 mg PO QID [facility]; Protocol Stop: 03/02/25 20:59 Last Admin: 02/25/25 08:56 Dose: 500 mg Cetirizine HCl (Cetirizine Hcl 10 Mg Tablet) 10 mg PO [facility] Stop: 03/25/25 20:59 Last Admin: 02/24/25 20:54 Dose: 10 mg Gabapentin (Gabapentin 300 Mg Cap) 300 mg PO [facility] Stop: 03/25/25 20:59 Last Admin: 02/24/25 20:53 Dose: 300 mg Hydromorphone HCl (Hydromorphone Inj 0.5 Mg/0.5 Ml Syr) 0.5 mg IV Q6H PRN PRN Reason: Severe Pain (Scale 7, 8, 9,10) Stop: 03/09/25 17:28 Sodium Chloride (Nss) 1,000 mls @ 80 mls/hr IV .[id number] [facility] Stop: 02/26/25 16:44 Last Admin: 02/25/25 09:09 Dose: 80 mls/hr Promethazine HCl (Phenergan) 12.5 mg in 50.5 mls @ 202 mls/hr IV Q6H PRN PRN Reason: Nausea And Vomiting Stop: 03/25/25 18:16 Last Infusion: 02/23/25 22:40 Dose: Infused Ketorolac Tromethamine (Ketorolac 30 Mg/Ml Vial) 30 mg IV Q6H PRN PRN Reason: Pain Stop: 03/01/25 18:10 Last Admin: 02/25/25 08:49 Dose: 30 mg Meloxicam (Meloxicam 7.5 Mg Tab) 15 mg PO QAM [facility] Stop: 03/26/25 08:59 Last Admin: 02/24/25 08:11 Dose: 15 mg Ondansetron HCl (Ondansetron Inj 2 Mg/Ml 2 Ml Vial) 4 mg IV Q6H PRN PRN Reason: Nausea And Vomiting Stop: 03/26/25 11:40 Last Admin: 02/25/25 05:09 Dose: 4 mg Pantoprazole Sodium (Pantoprazole 40 Mg Tab) [facility] Stop: 03/26/25 18:14 Last Admin: 02/25/25 08:56 Dose: 40 mg Polyethylene Glycol (Polyethylene (Miralax) 17 Gm Pack) 17 gm PO BID [facility] Stop: 03/25/25 20:59 Last Admin: 02/25/25 08:49 Dose: 17 gm Senna/Docusate Sodium (Docusate Sodium/Senna 50/8.6mg Tab) 2 tab PO HS [facility] Stop: 03/25/25 20:59 Last Admin: 02/24/25 20:52 Dose: 2 tab Simethicone (Simethicone 80 Mg Chew) 80 mg PO TID [facility] Stop: 03/25/25 20:59 Last Admin: 02/25/25 09:08 Dose: 80 mg Tramadol HCl (Tramadol Hcl 50 Mg Tablet) 50 mg PO Q4H PRN PRN Reason: Moderate Pain (Scale 4, 5, 6) Stop: 03/25/25 17:03 Last Admin: 02/25/25 00:04 Dose: 50 mg (1) S/P total hip arthroplasty Laterality: right Qualified Code(s): Z96.641 - Presence of right artificial hip joint
--- NOTE | 2025-02-25 09:20 | Orthopedic Progress Note ---
Date of Service February 25, 2025 Assessment & Plan (1) S/P total hip arthroplasty: Plan: 1. POD #6 status post right total hip arthroplasty - Overall patient seems to be doing much better. Her pain seems to be better controlled and she is not having as much nausea now -tolerating tramadol and Toradol. - Has had BM - Vital signs are stable. - Posterior hip precautions - May weight-bear as tolerated right lower extremity - Ice right hip as needed for pain and swelling - Physical therapy and Occupational Therapy consults - DVT prophylaxis aspirin 81 mg twice daily - Continue Keflex as prescribed - Leave silverlon dressing in place -will be removed at 2 weeks - Incentive spirometer 10 times per hour when awake - Discharge planning to home once medically improved; ok from ortho standpoint for discharge when medically stable. 2. Postoperative nausea and constipation - Large stool burden noted on x-ray imaging obtained today. - Will defer management of nausea and constipation to medicine team at this time. - May benefit from GI consultation if unable to have bowel movement in the near future. 3. Elevated LFTs - Patient was taking 6-9 extra-strength Tylenol daily. - Acetaminophen level less than 3. - AST ALT and alkaline phosphatase elevated yesterday. - Defer to medicine team on further management and recommendations moving forward - Will follow repeat liver enzyme levels if obtained. Admission and Anticipated Discharge Date Admission Date: February 23, 2025 Subjective Sitting up in bed, doing better today, but states that she had a rough night. The toradol did help with her pain. She states that things have started to move, but still feels very bloated. Denies nausea. Physical Exam Musculoskeletal: Exam of right hip: Silverlon in place. Results & Data Vital Signs (Past 12 Hours) Vital Signs Temp Pulse Resp BP Pulse Ox O2 Del Method 02/25/25 07:37 37.1 C 76 14 122/59 L 95 Room Air 02/24/25 23:35 CPAP 02/24/25 22:26 36.9 C 66 14 119/69 98 Room Air Laboratory Results No new labs performed today. (1) S/P total hip arthroplasty Laterality: right Qualified Code(s): Z96.641 - Presence of right artificial hip joint
[2025-02-25] MEDS: SODIUM CHLORIDE 0.9% 1,000 ML IV SCH (13:13)
[2025-02-26 06:53] LABS: Alanine Aminotransferase 75.0 U/L (7-52); Albumin Globulin Ratio 1.2 (0.9-2); Albumin Level 3.0 gm/dl (3.4-5.0); Alkaline Phosphatase 100.0 U/L (34-104); Anion Gap 4.0 (3-11); Bilirubin,Total 0.5 mg/dl (0.2-1.0); Blood Urea Nitrogen 12.0 mg/dl (6-23); Calcium 8.0 mg/dl (8.6-10.3); Carbon Dioxide 28.0 mmol/L (21-32); Chloride 108.0 mmol/L (98-107); Creatinine Clr Calc Pharmacy 112.7 ml/min; Globulin 2.5 gm/dl (2.5-4.0); Glucose 100.0 mg/dl (70-99(Fasting)); Potassium 3.6 mmol/L (3.5-5.1); Sodium 140.0 mmol/L (136-145); Total Protein 5.5 gm/dl (6.0-8.3)
[2025-02-26 07:18] VITALS: BP 127/75; PULSE 60; RESP 18; TEMP 98.2; O2SAT 95
--- NOTE | 2025-02-26 11:02 | Hospitalist Progress Note ---
Date of Service February 26, 2025 Assessment & Plan (1) S/P total hip arthroplasty: (2) Right hip pain: (3) Constipation: (4) Nausea: Plan This is a 54-year-old female who has a significant past medical history of GERD, IKE, RLS and insomnia who presents to ED secondary to worsening hip pain and nausea since recent right hip arthroplasty. #S/P R DELORIS on 02/19 #Post op pain floor hide on [place] and tramadol given myself Obtain right hip xr Will defer wound management to ortho Continue perioperative keflex per ortho ASA BID per ortho, if unable to tolerate PO will consider SQ Lovenox Pt is not tolerated zofran so will switch antiemetic to IV phenergan prn IV morphine for severe pain, prn tramadol for moderate pain schedule tylenol Appreciate Ortho input and recommendation Right hip pain is better today and she has been on intravenous Toradol and holding meloxicam for now She will be discharged on oral meloxicam as before and was advised to take less of narcotic pain medications to avoid constipation She has been stable and bowel has been moving normally Does not have any abdominal distention or discomfort and has been tolerating diet #Post op nausea #Constipation r/o ileus, obtain KUB encourage ambulation IVF, Clear liquid diet, ADAT Miralax BID, Senna S 2 tab at HS, Simethicone TID Bowel is not moved even with the suppository followed by Fleet enema and after that subcu Relistor was given She has been trying hard since this morning for bowel movement and has been most of the time in the toilet She will be given milk of magnesia 30 mL mL this evening Has nausea and getting Zofran and Phenergan Her bowel movement this morning and will continue her current bowel regimen Will give more IV fluid and also was advised to drink more fluid orally Remains stable to be discharged #Leukocytosis improved from surgery, 16k>12k no apparent source of infection or SIRS, but will monitor closely White count seems to be normalized #Elevated LFTS pt reports 6-9 extra strength Tylenol, daily, prior to surgery LFTS normal pre op will obtain APAP level, no abd pain repeat LFTS in a.m, consider RUQ US if worsening/not improving AST 147, ALT 234, ALP 147, total bili normal Will monitor LFTs while in the hospital LFTs are getting better and the cause of increased LFTs likely secondary to hypotensive episode Will monitor LFTs- #IKE: cpap at HS #DVT ppx: ASA BID Per ortho FULL CODE PCP: Ugo Wells Dispo: admit to med/surg I spent a total of 37 minutes coordinating, documenting and providing care for this patient excluding time spent in the performance of separately billed services or time spent by another provider/QHP. Admission and Anticipated Discharge Date Admission Date: February 23, 2025 Subjective 02/24/2025 The patient was seen and examined in medical unit She came in with abdominal bloating and also noted to have severe constipation She also had pain in the right hip 02/25/2025 The patient was seen and examined in medical floor She has been feeling little better today and she has had her bowel movement this morning Her pain is reasonably controlled with intravenous Toradol on top of narcotic pain medication 02/26/2025 The patient was seen and examined in medical floor She has been feeling much better denies any abdominal discomfort and/or pain Her pain in the hip is controlled with current medications She has been moving her bowels regularly and her constipation is resolved Review of Systems Review of Systems: All systems reviewed and are unremarkable except as noted below Physical Exam Physical Exam: The patient was seen and examined in medical floor Constitutional: well developed, well nourished, + ill appearing and + obese Eyes: PERRL, conjunctivae normal, anicteric sclerae ENMT: external ear and nose normal, oropharynx normal Neck: trachea midline, no thyromegaly Respiratory: no respiratory distress Auscultation: lungs clear to auscultation bilaterally Cardiovascular: Rate/Rhythm: regular rate and regular rhythm; not tachycardic Heart Sounds: normal S1 and normal S2; no abnormal opening sounds Gastrointestinal (Abdomen): Inspection/Auscultation: + abdomen distended and normal bowel sounds Percussion/Palpation: + abdomen tender ( mildly tender left lower quadrant) and abdomen soft Neurologic: normal touch/pain/proprioception and moves all extremities; no focal motor deficits Lymphatic: no cervical or axillary lymphadenopathy Results & Data Results & Data Vital Signs (Past 12 Hours) Vital Signs Temp Pulse Resp BP Pulse Ox O2 Del Method 02/26/25 07:17 36.8 C 60 18 127/75 95 Room Air 02/26/25 07:10 Room Air Laboratory Results [facility] 02/26/25 05:30 Sodium 140 Potassium 3.6 Chloride 108 H Carbon Dioxide 28 BUN 12 Creatinine 0.66 Glucose 100 H Calcium 8.0 L Liver Function 02/26/25 Range/Units 05:30 Total Bilirubin 0.5 (0.2-1.0) mg/dl AST 20 (13-39) U/L ALT 75 H (7-52) U/L Alkaline Phosphatase 100 (34-104) U/L Albumin 3.0 L (3.4-5.0) gm/dl Medications Administered Current Inpatient Medications Acetaminophen (Acetaminophen 500 Mg Tab) 500 mg PO QID [facility] Stop: 03/25/25 18:16 Last Admin: 02/26/25 08:26 Dose: 500 mg Aspirin (Aspirin 81 Mg Ectab) 81 mg PO BID [facility] Stop: 03/25/25 20:59 Last Admin: 02/26/25 08:16 Dose: 81 mg Cephalexin HCl (Cephalexin 500 Mg Cap) 500 mg PO QID [facility]; Protocol Stop: 03/02/25 20:59 Last Admin: 02/26/25 08:16 Dose: 500 mg Cetirizine HCl (Cetirizine Hcl 10 Mg Tablet) 10 mg PO [facility] Stop: 03/25/25 20:59 Last Admin: 02/25/25 20:48 Dose: 10 mg Gabapentin (Gabapentin 300 Mg Cap) 300 mg PO [facility] Stop: 03/25/25 20:59 Last Admin: 02/25/25 20:48 Dose: 300 mg Hydromorphone HCl (Hydromorphone Inj 0.5 Mg/0.5 Ml Syr) 0.5 mg IV Q6H PRN PRN Reason: Severe Pain (Scale 7, 8, 9,10) Stop: 03/09/25 17:28 Promethazine HCl (Phenergan) 12.5 mg in 50.5 mls @ 202 mls/hr IV Q6H PRN PRN Reason: Nausea And Vomiting Stop: 03/25/25 18:16 Last Infusion: 02/23/25 22:40 Dose: Infused Ketorolac Tromethamine (Ketorolac 30 Mg/Ml Vial) 30 mg IV Q6H PRN PRN Reason: Pain Stop: 03/01/25 18:10 Last Admin: 02/26/25 07:12 Dose: 30 mg Meloxicam (Meloxicam 7.5 Mg Tab) 15 mg PO QAM [facility] Stop: 03/26/25 08:59 Last Admin: 02/24/25 08:11 Dose: 15 mg Ondansetron HCl (Ondansetron Inj 2 Mg/Ml 2 Ml Vial) 4 mg IV Q6H PRN PRN Reason: Nausea And Vomiting Stop: 03/26/25 11:40 Last Admin: 02/25/25 05:09 Dose: 4 mg Pantoprazole Sodium (Pantoprazole 40 Mg Tab) 40 mg PO QAM [facility] Stop: 03/26/25 18:14 Last Admin: 02/26/25 08:16 Dose: 40 mg Senna/Docusate Sodium (Docusate Sodium/Senna 50/8.6mg Tab) 2 tab PO HS [facility] Stop: 03/25/25 20:59 Last Admin: 02/25/25 20:49 Dose: 2 tab Simethicone (Simethicone 80 Mg Chew) 80 mg PO TID [facility] Stop: 03/25/25 20:59 Last Admin: 02/26/25 08:26 Dose: 80 mg Tramadol HCl (Tramadol Hcl 50 Mg Tablet) 50 mg PO Q4H PRN PRN Reason: Moderate Pain (Scale 4, 5, 6) Stop: 03/25/25 17:03 Last Admin: 02/25/25 20:48 Dose: 50 mg (1) S/P total hip arthroplasty Laterality: right Qualified Code(s): Z96.641 - Presence of right artificial hip joint
--- NOTE | 2025-02-26 16:59 | Discharge Summary ---
Date of Service February 26, 2025 Admission HPI Per Admitting Provider This is a 54-year-old female who has a significant past medical history of GERD, IKE, RLS and insomnia who presents to ED secondary to worsening hip pain and nausea since recent right hip arthroplasty. Of significance patient underwent a right total hip arthroplasty on 02/[address] Garcia. Her EBL was 100ml. she was admitted overnight and her hospital stay was uneventful. She had been doing well postoperatively until postop day 2 when she developed nausea. She also was having increasing more pain and she was not able to tolerate her oral Oxy due to the nausea. She states that she has been able to ambulate and that her pain is not necessarily in the right groin. It is more so in the right gluteal area. She reports not tolerating oxycodone in the past. She has had dry heaving but no vomiting. She has not had a bowel movement in 5 days. She has had poor intake over the last 2 to 3 days due to significant nausea. She is passing significant amount of gas. She denies any fever, chills, sweats, lightheadedness, dizziness, chest pain, shortness of breath, abdominal pain, dysuria, increased urgency with urination. She typically does urinate every 2 hours but this is normal for her. She denies any hematuria. She denies any significant lower extremity swelling. Admission Exam Per Admitting Provider Physical Exam: Constitutional: WD/WN, vitals as above, NAD, sitting up in bed, pleasant, conversing easily Head: Normocephalic, Atraumatic Eyes: conjunctivae normal, anicteric sclerae ENMT: external ear and nose normal, oropharynx normal Neck: trachea midline, no thyromegaly normal visual inspection Respiratory: CTAB, no W/R/R, normal inspection, no accessory muscle use Cardiovascular: RRR, no murmur, no edema Chest: normal inspection of chest Abdomen: S, NT, ND, + hypoactive BS x 4 Musculoskeletal: no cyanosis or clubbing, extremities AROM x 4 , R hip dressing CDI, no surrounding erythema Skin: no rashes, warm and dry normal turgor Neurologic: no face palsy, no dysarthria CN's II-XI intact bilaterally and moves all extremities Psychiatric: A+Ox3, euthymic affect Principal Diagnosis Right hip pain status post arthroplasty, constipation- resolved, elevated LFTsnormalized Discharge Exam The patient was seen and examined in medical floor Constitutional well developed, well nourished, + ill appearing and + obese Eyes PERRL, conjunctivae normal, anicteric sclerae ENMT external ear and nose normal, oropharynx normal Neck trachea midline, no thyromegaly Respiratory no respiratory distress Auscultation: lungs clear to auscultation bilaterally Cardiovascular Rate/Rhythm: regular rate and regular rhythm; not tachycardic Heart Sounds: normal S1 and normal S2; no abnormal opening sounds Gastrointestinal (Abdomen) Inspection/Auscultation: + abdomen distended and normal bowel sounds Percussion/Palpation: + abdomen tender ( mildly tender left lower quadrant) and abdomen soft Neurologic normal touch/pain/proprioception and moves all extremities; no focal motor deficits Lymphatic no cervical or axillary lymphadenopathy Discharge Data Allergies Allergy/AdvReac Type Severity Reaction Status Date / Time No Known Allergies Allergy Unknown Verified 02/19/25 09:23 Consultations 02/23/25 16:25 ED Decision to Admit Stat 02/23/25 16:26 Consult Orthopedic Surgery Routine Hospital Course (1) S/P total hip arthroplasty: (2) Right hip pain: (3) Constipation: (4) Nausea: Plan This is a 54-year-old female who has a significant past medical history of GERD, IKE, RLS and insomnia who presents to ED secondary to worsening hip pain and nausea since recent right hip arthroplasty. #S/P R DELORIS on 02/19 #Post op pain floor hide on [place] and tramadol given myself Obtain right hip xr Will defer wound management to ortho Continue perioperative keflex per ortho ASA BID per ortho, if unable to tolerate PO will consider SQ Lovenox Pt is not tolerated zofran so will switch antiemetic to IV phenergan prn IV morphine for severe pain, prn tramadol for moderate pain schedule tylenol Appreciate Ortho input and recommendation Right hip pain is better today and she has been on intravenous Toradol and holding meloxicam for now She will be discharged on oral meloxicam as before and was advised to take less of narcotic pain medications to avoid constipation She has been stable and bowel has been moving normally Does not have any abdominal distention or discomfort and has been tolerating diet #Post op nausea #Constipation r/o ileus, obtain KUB encourage ambulation IVF, Clear liquid diet, ADAT Miralax BID, Senna S 2 tab at HS, Simethicone TID Bowel is not moved even with the suppository followed by Fleet enema and after that subcu Relistor was given She has been trying hard since this morning for bowel movement and has been most of the time in the toilet She will be given milk of magnesia 30 mL mL this evening Has nausea and getting Zofran and Phenergan Her bowel movement this morning and will continue her current bowel regimen Will give more IV fluid and also was advised to drink more fluid orally Remains stable to be discharged #Leukocytosis improved from surgery, 16k>12k no apparent source of infection or SIRS, but will monitor closely White count seems to be normalized #Elevated LFTS pt reports 6-9 extra strength Tylenol, daily, prior to surgery LFTS normal pre op will obtain APAP level, no abd pain repeat LFTS in a.m, consider RUQ US if worsening/not improving AST 147, ALT 234, ALP 147, total bili normal Will monitor LFTs while in the hospital LFTs are getting better and the cause of increased LFTs likely secondary to hypotensive episode Will monitor LFTs- #IKE: cpap at HS #DVT ppx: ASA BID Per ortho FULL CODE PCP: Ugo Wells Dispo: admit to med/surg I spent a total of 37 minutes coordinating, documenting and providing care for this patient excluding time spent in the performance of separately billed services or time spent by another provider/QHP. Total Time Total Time Spent Total Time Spent (In Minutes): 35 Minutes Discharge Plan Discharge Items Patient Disposition: Home - Home Health Services Reason For Visit: R HIP PAIN, S/P R DELORIS Discharge Diagnosis: Right hip pain status post arthroplasty, constipation- resolved, elevated LFTsnormalized Condition on Discharge: Good Activity: Per Instructions section Non-emergency contact: Surgeon Call non-emergency contact if: your symptoms worsen, your pain is not controlled, your pain is worsening, your temperature is above 101, your wound has increased redness and your wound has increased drainage Follow-up/Referrals: Costa Power PA-C [Physician Base Loader] - 03/03/25 1:00 pm Joey Wells DO [Primary Care Provider] - (Date & Time 03/03/2025 2:20 PM Provider: Joey Wells DO [facility] ) Diet: Regular Addtl Attending Provider Instructions: Try to drink more fluid to keep yourself hydrated and use stool softener [id number] Addtl Slusher Operator Provider Instructions: Orthopedic Instructions: - Keep silverlon dressing in place at all times until your next follow up appointment. - Okay to shower with Silverlon dressing in place. - Ambulate with the assistance of a walker or crutches at all times. - Posterior hip precautions right hip at all times. - Ice and elevate to right hip as needed for pain or swelling. - FLORIAN stockings bilateral lower extremities; on during the day and off at night. - Tramadol as needed for pain. - Continue meloxicam if okay due to elevated liver enzymes. - Follow-up as scheduled next week on March 03 with Costa Power PA-C. - Call [phone] with any increased pain, swelling, drainage from incisions, questions or concerns. Pending Studies at Discharge: No Stand-Alone Forms: My [facility], Pain - Opioid Pain Management, Smoking Cessation Medications and DC Order Prescriptions: Continued omega-3 fatty acids Capsule 1,000 mg PO BID levocetirizine [Xyzal] 5 mg Tablet 5 mg PO HS gabapentin 300 mg Capsule 100 mg PO QAM calcium citrate-vitamin D3 [Citracal + D Maximum] 315 mg-6.25 mcg (250 unit) Tablet 1 tab PO BID Magnesium Malate 300 mg PO QAM Neuro-Mag L Threonate 144 mg PO HS meloxicam 15 mg Tablet 15 mg PO QAM [id number] ac [id number] mg Capsule 1 cap PO QPM turmeric root extract 500 mg Tablet 1,000 mg PO QAM Elderberry, Vit C, Zinc, Vit D3, Liana 2 cap PO QAM Vitamin K1/K2 1 tab PO HS gabapentin 300 mg Capsule 300 mg PO HS aspirin 81 mg Tablet,Delayed Release (Dr/Ec) 81 mg PO BID 30 Days Qty: 60 0RF oxycodone 5 mg Tablet 5 - 10 mg PO Q4H MDD Max 6/day PRN (Reason: Post op pain control) Qty: 28 0RF ondansetron 4 mg tablet,disintegrating 4 mg PO Q8H 5 Days Qty: 15 0RF cephalexin 500 mg capsule 500 mg PO TID 5 Days Qty: 15 0RF acetaminophen [Tylenol Extra Strength] 500 mg tablet 1,000 mg PO Q6H PRN (Reason: Pain) Qty: 0 0RF Discharge Orders: Discharge Order (Routine); Ordered 02/26/25 Ordered By: Aimee Cormier/Other Patient Handouts: Anatomy of the Digestive System, ED Constipation (Adult) Admission Data Admit Date/Time: 02/23/25 16:28 Attending Provider: Aimee Cavazos Admit Provider: Noah Damon Primary Care Provider: Joey Wells Other Providers: Noah Damon; Pilo Garcia; [facility],Home Healthcare Other Interventions: Discharge Summary Assessment (RN) Last Done: 02/26/25 11:46
== END 2025-02-26 13:17 | disposition home health service (06) | DRG 941 ==
LOC: ED 13:38 → SUATTDRO 16:28 → 3E 16:28